=== PATIENT | male | born 1945 | race Caucasian/White ===

== ENCOUNTER 2019-12-31 09:34 | Outpatient (CLI) | payer OTHER, SELFPAY ==
--- NOTE | ~2019-12-31 | CT_ITS ---
EXAMINATION: CT facial bones w con EXAM DATE: 12/31/2019 11:26 INDICATION: Mass left anterior aspect of mandible. TECHNIQUE: Spiral CT of the facial bones was acquired in the axial plane following intravenous inject ion of 75 mL Omnipaque 350. Coronal reformatted images were also reviewed. The dose-length product (DLP) for this examination was 392.07 mGy-cm. The exposure was tailored according to patient size, a nd iterative reconstruction (ASIR) was used as additional dose reduction technique. There is no prio r study for comparison. FINDINGS: There is dense metallic artifact from dental hardware. There is poor indentation. There is a rim-enhancing fluid collection in the left ui ux web developer space, at the retromolar trigone measuring 2. 1 x 1.5 cm, mostly in the inferior aspect of the left temporalis muscle. This could be abscess or mal ignancy. No mandibular erosive change. There are small left submandibular, internal jugular chain lym ph nodes. Parotid and submandibular glands are unremarkable. IMPRESSION: Left ui ux web developer space fluid collection at the retromolar trigone. Could be abscess or nec rotic malignancy. Reviewed, dictated and finalized at location A. [employer] IMPRESSION: Left ui ux web developer space fluid collection at the retromolar trigone. C ould be abscess or necrotic malignancy.
[2019-12-31 11:08] LABS: Estimated Glomerular Filt Rate > 60
== END 2019-12-31 09:35 | disposition home or self-care (01) ==
LOC: ANHIMG 09:46
PROVIDERS: PCP Family Medicine
DX: K13.79 Other lesions of oral mucosa (principal)
CPT/HCPCS: 70487; Q9967

== ENCOUNTER → 2020-04-25 00:46 | Outpatient (CLI) | payer OTHER, SELFPAY ==
[2020-04-25 18:32] LABS: SARS-CoV-2 RNA PCR Negative
== END ==
PROVIDERS: PCP Family Medicine; Visit Provider Internal Medicine Gastroenterology
DX: Z01.812 Encounter for preprocedural laboratory examination (principal); Z20.822 Contact with and (suspected) exposure to COVID-19
CPT/HCPCS: C9803; U0003; U0005

== ENCOUNTER 2020-04-28 00:29 | Day surgery (SDC) | payer OTHER, SELFPAY ==
[2020-02-25 13:24] VITALS: BMI 31.8
[2020-04-13 09:49] VITALS: BMI 31.9
[2020-04-28 06:19] VITALS: BP 172/73; PULSE 74; RESP 20; TEMP 36.8; O2SAT 96
[2020-04-28] MEDS: LACTATED RINGERS 1,000 ML 150 ML IV CONT (06:33)
--- NOTE | 2020-04-28 06:56 | P.PNAN_ITS ---
Anes - Initial Pre Proc Eval Procedure: Operation Date: 04/28/20 07:30 Proposed Procedures p Screening Colonoscopy - Mando Mcintosh MD Date/Time: 04/28/20 06:56 Surgeon: Mando Mcintosh MD Pre Op Diagnosis: Neoplasm Screening Patient Data Age: 74 Gender: M Height: 5 ft 8 in Weight: 97.1 kg Last Vital Signs Temp 36.8 C 04/28/20 06:19 Pulse 74 04/28/20 06:19 Resp 20 04/28/20 06:19 BP 172/73 H 04/28/20 06:19 Pulse Ox 96 04/28/20 06:19 Allergies Allergy/AdvReac Type Severity Reaction Status Date / Time Shrimp Allergy Severe DIFFICULTY Uncoded 04/28/20 06:17 BREATHING Home Medications Medication Instructions Recorded Confirmed Type indomethacin 75 mg PO BID PRN 02/25/20 02/25/20 History vit C-E-zinc [id number] 1 cap PO BID 02/25/20 02/25/20 History [ICaps AREDS2] warfarin 4 mg PO DAILY 02/25/20 02/25/20 History lisinopril 10 mg tablet See Rx Instructions .ROUTE 02/28/20 04/13/20 Rx .COMPLEX #90 tablet Patient hx anesthesia problems: none Family hx anesthesia problems: none PMFSH Past Medical History Medical History Carpal tunnel syndrome on both sides Dyslipidemia Essential (primary) hypertension Factor V deficiency Family history of colon cancer in father History of prediabetes Idiopathic gout Portal vein thrombosis Prediabetes Umbilical hernia 07/01/2018 Unspecified osteoarthritis, unspecified site Surgical History Surgical History H/O right knee surgery age 32 History of carpal tunnel surgery right - 07/28/2015 & left 04/20/2010 History of cholecystectomy (~2012) History of hernia repair (~1965) Hx of appendectomy (~2011) [place] teeth extracted (~01/2020) Family History Family History Father Carcinoma of colon, Onset Age: 76 Other Cerebrovascular accident Diabetes mellitus Family history of hypercholesterolemia Family history of thyroid disease Hypertension Malignant neoplasm of prostate Social History Social History Smoking status: Never smoker Second hand tobacco smoke exposure: No Alcohol intake: current Drinks per week: 1 Substance use: never Substance use type: does not use Living arrangements: with family Spiritual care concerns: No Anes - Eval Final PreProcedure Day of Procedure 04/28/20 06:56 Patient weight: obese Heart: regular rate and rhythm Lungs: clear to auscultation Airway: Mallampati scale class 1 Neurological: alert and oriented Last oral intake: >/= 8 hours ASA classification: III Emergent: no Anesthetic plan: proceed Anesthesia type and monitoring: general GIVS and standard monitoring Informed Consent: The patient's anesthetic plan and its attendant risks and benefits were discussed with the patient/family/POA. Questions were solicited and answers provided to the satisfaction of the patient/family/POA.
--- NOTE | 2020-04-28 07:35 | PM.HPGS ---
History of Present Illness History of Present Illness Consent: Risks, benefits, and alternatives have been discussed and questions answered. Patient agrees to proceed with procedure. Chief complaint: Neoplasm Screening Narrative: Chon Packer is a 74 year old male with last colonoscopy 10 years ago, father had colon cancer Review of Systems Constitutional: Constitutional: Denies headache(s) and Denies weakness Eyes: Eyes: Denies blurry vision ENT: Reports Normal hearing present, Denies headache(s) and Denies neck pain Cardiovascular: Cardiovascular: Denies chest pain and Denies dyspnea Respiratory: Respiratory: Denies dyspnea Gastrointestinal: Gastrointestinal: Reports no additional gastrointestinal complaints Genitourinary: Genitourinary: Denies dysuria Musculoskeletal: Musculoskeletal: Denies neck pain Integumentary/Breasts: Skin/Breast: Denies dry skin Neurologic: Reports Normal hearing present, Denies headache(s) and Denies weakness Psychiatric: Psychiatric: Denies anxiety Endocrine: Endocrine: Denies change in body appearance Hematologic/Lymphatic: Hematologic/Lymphatic: Denies easy bleeding Allergic/Immunologic: Allergic/Immunologic: Denies urticaria PMFSH Past Medical History Medical History Carpal tunnel syndrome on both sides Dyslipidemia Essential (primary) hypertension Factor V deficiency Family history of colon cancer in father History of prediabetes Idiopathic gout Portal vein thrombosis Prediabetes Umbilical hernia 07/01/2018 Unspecified osteoarthritis, unspecified site Surgical History Surgical History H/O right knee surgery age 32 History of carpal tunnel surgery right - 07/28/2015 & left 04/20/2010 History of cholecystectomy (~2012) History of hernia repair (~1966) Hx of appendectomy (~2011) [place] teeth extracted (~01/2020) Family History Family History Father Carcinoma of colon, Onset Age: 76 Other Cerebrovascular accident Diabetes mellitus Family history of hypercholesterolemia Family history of thyroid disease Hypertension Malignant neoplasm of prostate Social History Social History Smoking status: Never smoker Second hand tobacco smoke exposure: No Alcohol intake: current Drinks per week: 1 Substance use: never Substance use type: does not use Living arrangements: with family Spiritual care concerns: No Meds Home Medications and Allergies Home Medications Medication Instructions Recorded Confirmed Type indomethacin 75 mg PO BID PRN 02/25/20 02/25/20 History vit C-E-zinc gm-kiep-cgf-zeax 1 cap PO BID 02/25/20 02/25/20 History [ICaps AREDS2] warfarin 4 mg PO DAILY 02/25/20 02/25/20 History lisinopril 10 mg tablet See Rx Instructions .ROUTE 02/28/20 04/13/20 Rx .COMPLEX #90 tablet Allergies Allergy/AdvReac Type Severity Reaction Status Date / Time Shrimp Allergy Severe DIFFICULTY Uncoded 04/28/20 06:17 BREATHING Vital Signs Vital Signs - 24 hr 04/28/20 06:19 Temperature 98.2 F Pulse Rate 74 Respiratory Rate 20 Blood Pressure 172/73 H Pulse Oximetry 96 Exam Const: General: comfortable and no acute distress HENMT: General nose exam: Normal nares present Eyes: General: appearance normal, both eyes and all related structures Neck: Neck: no JVD Resp: Auscultation: clear to auscultation bilaterally Cardio: Rate: regular rate Rhythm: regular rhythm GI: Inspection: non-distended GI Palp: Yes Soft to palpation Skin: General skin exam: normal color Neuro: General: gait normal Speech: normal speech Extrem: General: normal to inspection Psych: Mental Status: mental status grossly normal Assessment and Plan Assessment and plan (1) Family history
[2020-04-28 08:03] VITALS: BP 125/67; PULSE 64; RESP 18; O2SAT 98
[2020-04-28 08:13] VITALS: BP 108/77; PULSE 59; RESP 18; O2SAT 97
[2020-04-28 08:23] VITALS: BP 139/67; PULSE 53; RESP 18; O2SAT 98
== END 2020-04-28 08:34 | disposition home or self-care (01) ==
PROVIDERS: PCP Family Medicine; Visit Provider Internal Medicine Gastroenterology
PROC: 0DJD8ZZ Inspection of Lower Intestinal Tract, Via Natural or Artificial Opening Endoscopic (ICD-10-PCS; CPT 45378; principal; 2020-04-28 07:30)
DX: Z12.11 Encounter for screening for malignant neoplasm of colon (principal); D12.3 Benign neoplasm of transverse colon; K57.30 Diverticulosis of large intestine without perforation or abscess without bleeding; D68.51 Activated protein C resistance; I10 Essential (primary) hypertension; E78.5 Hyperlipidemia, unspecified; R73.03 Prediabetes; M19.90 Unspecified osteoarthritis, unspecified site; M10.00 Idiopathic gout, unspecified site; Z79.01 Long term (current) use of anticoagulants; E66.9 Obesity, unspecified; Z68.32 Body mass index [BMI] 32.0-32.9, adult; Z80.0 Family history of malignant neoplasm of digestive organs
CPT/HCPCS: 45385; 88305; J2704; J7120

== ENCOUNTER 2021-05-31 12:16 | Inpatient (IN) | payer MEDICARE, SELFPAY ==
[2021-05-31] VITALS (26 sets, daily range): BP systolic 120–186; BP diastolic 62–98; PULSE 58–89; RESP 14–24; TEMP 36.2–37.2; O2SAT 93–100; BMI 32.1
--- NOTE | ~2021-05-31 | US_ITS ---
EXAMINATION: US venous doppler [facility] DATE: 06/01/2021 12:40 INDICATION: Right lower limb deep venous thrombosis. Factor 5 derangement. Subtherapeutic INR. TECHNIQUE: Grayscale ultrasound images without and with compression and Doppler ultrasound images of the bilateral lower extremity veins were obtained. COMPARISON: None. FINDINGS: The visualized portions of right common femoral vein, profunda (deep) femoral vein, femoral vein, pop liteal vein, posterior tibial veins, peroneal veins, gastrocnemius vein and greater saphenous vein ou tflow are patent. The visualized portions of left common femoral vein, profunda femoral vein, femoral vein, popliteal v ein, posterior tibial veins, peroneal veins, gastrocnemius vein and greater saphenous vein outflow ar e patent. IMPRESSION: 1. No deep venous thrombosis in either lower limb. Reviewed, dictated and finalized at location A.
--- NOTE | ~2021-05-31 | XR_ITS ---
EXAMINATION: XR chest 2V EXAM DATE: 05/31/2021 12:40 INDICATION: Left sided chest pain . TECHNIQUE: Frontal and lateral projections of the chest obtained and reviewed. There is no prior yazan dy for comparison. FINDINGS: The lungs are clear. There are no pleural effusions. The cardiomediastinal silhouette is within normal limits. There is no pneumothorax suspected. The bones and soft tissues are unremarkab le. There are cholecystectomy clips. IMPRESSION: No acute cardiopulmonary findings. Reviewed, dictated and finalized at location A.
--- NOTE | ~2021-05-31 | CT_ITS ---
EXAMINATION: CTA chest PE protocol DATE: 05/31/2021 18:55 INDICATION: Chest pain and shortness of breath TECHNIQUE: Computed tomography angiography (CTA) of the chest was performed with 100 mL Omnipaque-350 intravenous contrast timed to evaluate the pulmonary arteries. Coronal maximum intensity projection 3D-reconstructions were created by the technologist. The dose-length product (DLP) was 598.98 mGy-cm. Automated exposure control and iterative reconstruction technique were employed. COMPARISON: None. FINDINGS: The pulmonary arteries are well-opacified. There are central emboli in the main pulmonary a rteries which extend into all lobes of the lungs. There is straightening of the interventricular sept um of the heart. There are patchy opacities in the left upper and lower lobes. There is no pleural ef fusion or pneumothorax. No pathologically enlarged thoracic lymph nodes are identified. The heart siz e is normal. There is moderate thoracic spondylosis. IMPRESSION: 1. Bilateral central pulmonary emboli extending into all lobes of the lungs with suggestion of right heart strain. These findings were discussed with the patient's nurse in the IMU at 1928 hours on 05/31. 2. Patchy opacities of the left lung which could reflect pneumonia, atelectasis, or possibly pulmonar y infarct. Reviewed, dictated and finalized at location F. IMPRESSION: 1. Bilateral central pulmonary emboli extending into all lobes of the lungs wit h suggestion of right heart strain. These findings were discussed with the joann ent's nurse in the IMU at 1928 hours on 05/31/2021. 2. Patchy opacities of the left lung which could reflect pneumonia, atelectasis , or possibly pulmonary infarct.
--- NOTE | 2021-05-31 12:17 | ECG_ITS ---
Measurements Intervals Casa Rate: 78 P: 55 KS: 212 QRS: -66 QRSD: 106 T: 51 QT: 366 QTc: 419 Interpretive Statements SINUS RHYTHM WITH FIRST DEGREE AV BLOCK PATTERN CONSISTENT WITH PULMONARY DISEASE LEFT ANTERIOR FASCICULAR BLOCK [QRS AXIS <= -45, QR IN I, RS IN II] ABNORMAL ECG NO PREVIOUS ECG AVAILABLE FOR COMPARISON Electronically Signed On 05-31-2021 17:05:07 CDT by Maicol Fields M.D.
[2021-05-31 12:31] LABS: Basophils Percent Auto 0.4 % (0.2-1.2); Eosinophils Absolute Auto 0.5 K/mm3 (0-0.3); Hematocrit 45.6 % (42.0-52.0); Hemoglobin 14.9 g/dL (14.0-18.0); Immature Granulocyte Absolute 0.04 K/mm3 (0.00-0.031); Immature Granulocyte Percent A 0.5 % (0-0.5); Lymphocytes Absolute Auto 2.26 K/mm3 (0.9-3.2); Lymphocytes Percent Auto 29.1 % (18.3-44.2); Mean Corpuscular HGB Conc 32.7 g/dl (32-36); Mean Corpuscular Volume 91.9 fl (80-100); Mean Platelet Volume 9.4 fl (7.4-10.4); Monocytes Percent Auto 12.5 % (2.6-8.5); Neutrophils Percent Auto 51.5 % (45.5-73.1); Platelet Count Result 155 k/mm3 (150-375); Red Blood Count 4.96 M/mm3 (4.6-6.20); Red Cell Distribution Width 13.2 % (11.5-14.5); White Blood Count 7.8 K/mm3 (4.5-10.0)
[2021-05-31 12:40] LABS: INR 1.2; Prothrombin Time 15.1 Seconds (11.1-14.7)
[2021-05-31 12:41] LABS: Partial Thromboplastin Time 29.2 SECONDS (22.3-36.8)
[2021-05-31 12:42] LABS: Alanine Aminotransferase 17 U/L (4-50); Albumin Level 4.3 g/dL (3.5-5.1); Alkaline Phosphatase 95 U/L (38-126); Anion Gap 7 mmol/L (8-16); Aspartate Amino Transferase 30 U/L (17-59); Bilirubin,Total 0.5 mg/dL (0.2-1.3); Blood Urea Nitrogen 20 mg/dL (9-20); Calcium 8.8 mg/dL (8.4-10.2); Carbon Dioxide 28 mmol/L (22-30); Chloride 106 mmol/L (98-107); Estimated Glomerular Filt Rate > 60; Glucose 111 mg/dL (65-110); Lipase 85 U/L (23-300); Potassium 4.5 mmol/L (3.4-5.0); Sodium 141 mmol/L (137-145)
[2021-05-31 12:53] LABS: Troponin I 0.012 ng/mL (0.000-0.034)
--- NOTE | 2021-05-31 14:14 | ED.CHESTPAIN ---
HPI - Chest Pain General Chief Complaint: Chest Pain Stated Complaint: chest pain Time Seen by Provider: 05/31/21 13:50 Source: patient Mode of arrival: ambulatory Limitations: no limitations History of Present Illness HPI narrative: Patient is 75 years old white male presents with left chest pain for the last 2 months. On exertion. Associated with intermittent shortness of breath, diaphoresis. Gets better at rest. History of factor V deficiency, portal thrombosis, and hypertension. Patient started on Coumadin 8 years ago for portal thrombosis, patient quit taking Coumadin on his own August 2020, restarted on it again by his family physician 1 week ago. Patient was seen by his family physician 1 week ago we will schedule him for cardiac stress test June 2021. Patient woke up this morning after light activity started having left chest pain as usual which lasted longer than usual. He denies any fever, chills, nausea, vomiting, back pain, headache. Related Data Allergies Allergy/AdvReac Type Severity Reaction Status Date / Time Shrimp Allergy Severe DIFFICULTY Uncoded 05/31/21 13:14 BREATHING Review of Systems Review of Systems: CONSTITUTIONAL: Denies fever, chills, or sweats. EYES: Denies visual changes, redness, or discharge. ENT: Denies rhinorrhea, congestion, sore throat, or otalgia. CARDIOVASCULAR: Denies chest pain, palpitations, or edema. RESPIRATORY: Denies cough or dyspnea. GASTROINTESTINAL: Denies abdominal pain, nausea, vomiting, or diarrhea. GENITOURINARY: Denies dysuria or hematuria. SKIN: Denies rash or itching. MUSCULOSKELETAL: Denies back pain, joint pain, or myalgia. NEUROLOGIC: Denies headache, numbness, or weakness. PSYCHIATRIC: Denies anxiety or depression. [facility] Past Medical History Medical History Carpal tunnel syndrome on both sides Dyslipidemia Essential (primary) hypertension Factor V deficiency Family history of colon cancer in father History of prediabetes Idiopathic gout Portal vein thrombosis Prediabetes Umbilical hernia 07/01/2018 Unspecified osteoarthritis, unspecified site Surgical History Surgical History H/O right knee surgery age 32 History of carpal tunnel surgery right - 07/28/2015 & left 04/20/2010 History of cholecystectomy (~2012) History of hernia repair (~1965) Hx of appendectomy (~2011) [place] teeth extracted (~01/2020) Family History Family History Father Carcinoma of colon, Onset Age: 76 Other Cerebrovascular accident Diabetes mellitus Family history of hypercholesterolemia Family history of thyroid disease Hypertension Malignant neoplasm of prostate Social History Social History Second hand tobacco smoke exposure: No Alcohol intake: current Drinks per week: 1 Substance use: never Substance use type: does not use Spiritual care concerns: No Exam Narrative: General appearance: Well-developed, well-nourished Skin: Normal color Head: Normocephalic, nontraumatic Eyes: Clear conjunctiva ENT: Oropharynx normal, ears normal, nose normal Neck: Supple, nontender Chest and respiratory: Airway patent, no respiratory distress, no accessory muscle use Heart: Regular rate/rhythm Abdomen: Soft, nontender, no organomegaly, quiet bowel sounds Vascular: Normal peripheral pulses, normal capillary refill. Musculoskeletal: Normal range of motion, nontender back Neurologic: Alert and oriented ?3, PIECE DYER is normal as tested, no gross motor deficit Course Course Emergency
--- NOTE | 2021-05-31 14:50 | PM.IMHP ---
H&P: HPI History of Present Illness Date/Time: 05/31/21 14:50 Chief Complaint: Chest pain. Narrative: This is a pleasant 75-year-old male with hypertension, dyslipidemia, prediabetes, factor 5 deficiency, gout, and osteoarthritis who presented to the emergency department from home for evaluation of chest pain. Over the last couple of months he has noticed intermittent left anterior chest and shoulder pain associated with shortness of breath and occasional sweats and lightheadedness. The symptoms tend to occur with activities such as taking out the trash can or playing with his grandchildren. It is occasionally worse upon deep inspiration but not each time. His symptoms improve with rest. His symptoms have occurred more frequently over the past 1 week and this morning they lasted much longer than usual and thus he came in for evaluation. Vital signs were stable on arrival to the emergency department. Labs are relatively unremarkable with 2 negative troponins thus far. His EKG did not demonstrate any acute ST segment changes or signs concerning for ischemia. Due to his risk factors, I was asked to admit the patient for further cardiac evaluation. At the time my evaluation he is resting comfortably however did have an episode of poking pain in the left anterior chest with deep inspiration upon auscultation. With further questioning he mentions that he stopped taking his warfarin last summer shortly after his but after meeting with his primary care provider earlier this week, he has started back on that medication within the past day or 2. He has no known history of coronary artery disease and has no history of pulmonary embolism to his knowledge however he does have history of DVT and portal venous thrombosis. Review of Systems Review of Systems: 12 systems were reviewed. He had upper respiratory infection in March but has been doing well since that time. He is recently lost a couple of pounds as he has been starting to ride a bicycle. No orthopnea, PND, or lower extremity edema. He denies calf pain. No palpitations or sensation of racing heart. He denies syncope and near syncope. No nausea, vomiting, or diarrhea. Except as documented, all other systems were reviewed and are negative [facility] Past Medical History Medical History (Updated 05/31/21 @ 14:55 by Rosie Vogel PA-C) Dyslipidemia Essential (primary) hypertension Factor V deficiency Idiopathic gout Kidney stones Macular degeneration Portal vein thrombosis Prediabetes Hemoglobin A1c was 5.8% in May 2021. Right leg DVT Unspecified osteoarthritis, unspecified site Surgical History Surgical History (Updated 05/31/21 @ 14:54 by Rosie Vogel PA-C) History of appendectomy (2008) History of arthroscopy of both knees History of bilateral carpal tunnel release History of cholecystectomy (2008) History of colonoscopy with polypectomy (04/2020) Transverse colon polyp-tubular adenoma History of right inguinal hernia repair (1965) [place] teeth extracted (01/2020) Family History Family History (Updated 05/31/21 @ 16:58 by Lena Caicedo RN) Father Carcinoma of colon, Onset Age: 76 Family history of hypercholesterolemia Heart attack Mother Cerebrovascular accident Family history of hypercholesterolemia Family history of thyroid disease Sibling Malignant neoplasm of prostate Social History Social History (Updated 05/31/21 @ 16:58 by Rosie Vogel PA-C) Social History: Surrogate decision maker: Elayne Vogt, daughter. Code status: Full code. Second hand tobacco smoke exposure: No Alcohol intake: current Drinks per week: 1 Substance use: never Substance use type: does not use Additional living arrangements comments: as of August 2020. Daughter, son-in-law, grandchildren are now living with him. Additional occupation/education comments: Retired from working for the [employer] Spiritual care concerns: No Meds
[2021-05-31] MEDS: METOPROLOL TARTRATE 25 MG TABLET PO (16:08)
[2021-05-31] MEDS: NITROGLYCERIN OINTMENT 1 INCH DOSE TRANSDERM (16:08)
--- NOTE | 2021-05-31 16:24 | PM.CNCAR ---
Assessment and Plan Additional Plan This is a 75-year-old man who is presenting with about 2 months of increasing exertional shortness of breath recently a combination by some left shoulder discomfort as well. It is also interesting that some of his shoulder pain can be caused by deep inspiration. He has no previous cardiac history. He does have a history of a documented hypercoagulable disorder and has been off his warfarin for some time. Recently restarted by the PCP when he was presenting with the symptoms but he is not yet he has been therapeutic. My principal concern at this time would be that this gentleman may have a pulmonary embolism. I have discussed this with the hospitalist who will be arranging for CT of his chest. I am going to ask for an echocardiogram for these reasons as well. I will await these results before I determine if any other cardiac workup is necessary otherwise. Chon Benson MD [facility] History of Present Illness History of Present Illness Consult date/time: 05/31/21 16:24 Consult reason: chest pain and shortness of breath Reason For Visit: Unstable Angina Narrative: This is a 75-year-old man I am seeing in the emergency room at the request of the ED staff/hospitalist because of exertional dyspnea and some left shoulder pain that had been going on now for about 2 months. The patient states that he has noticed for something like 2 months with normal daily activities such as housework and carrying out the garbage cans and things like this he will notice the sense of dyspnea/air hunger when usually that is not the case. He thinks it has been slowly getting a little bit worsened recently within the last week or so it is also associated with the sense of some pain in the left upper chest or left shoulder region. He also states that pain tends to get worse if he takes a deep inspiration. Patient states that he has not had any cardiac problems in the past that he is aware of. He does carry the diagnosis of hypertension and factor 5 deficiency. He states the factor 5 deficiency diagnosis was made a number of years ago when he presented with a portal vein thrombosis was hospitalized for something like 3 or 4 weeks at [place] and was recommended to take lifelong warfarin treatment. He states that his she sadly of a malignancy this past year and he decided that he was going to take his medication any longer he had not been taking his warfarin for quite some time. Apparently saw his PCP about the symptoms of dyspnea just a few days ago and was convinced to go back on warfarin. He has been taking his medication for mg daily but his INR is of course still subtherapeutic at 1.2. Patient's electrocardiogram shows sinus mechanism with left anterior superior hemiblock. He otherwise appears to be resting comfortably in the emergency room. Review of Systems Constitutional: Constitutional: Reports no additional constitutional complaints Eyes: Eyes: Reports no additional eye complaints ENT: Reports system reviewed and no additional complaints, except as documented Cardiovascular: Cardiovascular: Reports as per HPI Respiratory: Respiratory: Reports as per HPI Gastrointestinal: Gastrointestinal: Reports no additional gastrointestinal complaints Musculoskeletal: Musculoskeletal: Reports no additional musculoskeletal complaints Integumentary/Breasts: Skin/Breast: Reports system reviewed and no additional complaints, except as docu Neurologic: Reports system reviewed and no additional complaints, except as documented Endocrine: Endocrine: Reports no additional endocrine complaints Hematologic/Lymphatic: Hematologic/Lymphatic: Reports no additional hematologic/lymphatic complaints Allergic/Immunologic: Allergic/Immunologic: Reports no additional allergic/immunologic complaints [facility] Past Medical History Medical History (Updated 05/31/21 @ 14:55 by Rosie Vogel PA-C) Dyslipidemia Essential (primary)
[2021-05-31 16:37] LABS: Troponin I < 0.012 ng/mL (0.000-0.034)
[2021-05-31 16:40] LABS: SARS-CoV-2 RNA PCR Negative
--- NOTE | 2021-05-31 16:51 | PC.NURSE ---
Report received from ZEV Givens with the ED department at 1522. All questions answered and plan of care reviewed. Patient to go to IMU room 206-1.
--- NOTE | 2021-05-31 16:52 | ADMGEN ---
This patient, Chon Packer, was admitted to IMU Room 206-01. Patient/family oriented to hospital policies and general routines including ID bracelet, bed and alarms, visiting hours, pain management, procedures, bathroom and other care routines, personal items, smoking policy, room service/diet, and visiting hours. Information on how to activate the Rapid Response Team has been discussed. Patient/Family are encouraged to report perceived risks to care and to ask questions if they do not understand what they are told or what they should do.
--- NOTE | 2021-05-31 16:53 | ADMGEN ---
This patient, Chon Packer, was admitted to IMU Room 206-01 AT 1653. Patient/family oriented to hospital policies and general routines including ID bracelet, bed and alarms, visiting hours, pain management, procedures, bathroom and other care routines, personal items, smoking policy, room service/diet, and visiting hours. Information on how to activate the Rapid Response Team has been discussed. Patient/Family are encouraged to report perceived risks to care and to ask questions if they do not understand what they are told or what they should do.
[2021-05-31 18:54] LABS: Troponin I < 0.012 ng/mL (0.000-0.034)
[2021-05-31] MEDS: HEPARIN SODIUM 5,000 UNITS/ML VIAL 6500 UNITS IV PUSH (21:30)
[2021-05-31 21:40] LABS: Basophils Percent Auto 0.3 % (0.2-1.2); Eosinophils Absolute Auto 0.4 K/mm3 (0-0.3); Eosinophils Percent Auto 6.6 % (0-4.4); Hematocrit 41.6 % (42.0-52.0); Hemoglobin 13.5 g/dL (14.0-18.0); Immature Granulocyte Absolute 0.01 K/mm3 (0.00-0.031); Immature Granulocyte Percent A 0.2 % (0-0.5); Lymphocytes Absolute Auto 1.79 K/mm3 (0.9-3.2); Lymphocytes Percent Auto 28.8 % (18.3-44.2); Mean Corpuscular HGB Conc 32.5 g/dl (32-36); Mean Corpuscular Hemoglobin 29.7 pg (26-34); Mean Corpuscular Volume 91.4 fl (80-100); Mean Platelet Volume 9.6 fl (7.4-10.4); Monocytes Absolute Auto 0.8 K/mm3 (0.1-0.6); Monocytes Percent Auto 12.4 % (2.6-8.5); Neutrophils Absolute Auto 3.2 K/mm3 (1.3-6.7); Neutrophils Percent Auto 51.7 % (45.5-73.1); Platelet Count Result 147 k/mm3 (150-375); Red Blood Count 4.55 M/mm3 (4.6-6.20); Red Cell Distribution Width 13.1 % (11.5-14.5); White Blood Count 6.2 K/mm3 (4.5-10.0)
[2021-05-31] MEDS: HEPARIN SOD/D5W 100 UNITS/ML 25,000 UNITS/250 ML BAG 14 UNITS IV CONT (21:41)
[2021-05-31 21:52] LABS: INR 1.4; Prothrombin Time 16.6 Seconds (11.1-14.7)
[2021-05-31 21:53] LABS: Partial Thromboplastin Time 33.9 SECONDS (22.3-36.8)
[2021-06-01] VITALS (14 sets, daily range): BP systolic 122–161; BP diastolic 53–71; PULSE 53–74; RESP 16; TEMP 36.3–36.9; O2SAT 93–100
--- NOTE | 2021-06-01 | ECHO_ITS ---
Patient Info Name: Chon Packer Age: 75 years : 1945 Gender: Male Ht: 68 in Wt: 209 lbs BSA: 2.16 m2 HR: 57 bpm BP: 122 / 60 mmHg Heart Rhythm: Sinus Rhythm Technical Quality: Fair Exam Date: 06/01/2021 8:11 AM Exam Location: [facility] Patient Status: Inpatient Admit Date: 05/31/2021 Staff Ordering Physician: Chon Benson MD Pack Press Operator: Maggie Felix RDCS Attending Provider: Miladis Xiong M.A., MD Referring Physician: Marcelino SON; Exam Type: CA echo doppler color flow Study Info Complete two-dimensional, color flow and Doppler transthoracic echocardiogram is performed. Summary 1. Complete two-dimensional, color flow and Doppler transthoracic echocardiogram is performed. 2. There is mild concentric increased left ventricular wall thickness. 3. Left ventricular systolic function is normal, estimated at 55-60%. 4. The left ventricular diastolic function is grade I diastolic dysfunction. 5. Right ventricular chamber dimension is normal. 6. Despite pulmonary embolism no evidence of right ventricular strain/dysfunction. Left Ventricle Left ventricular chamber dimension is normal. Left ventricular systolic function is normal, estimated at 55-60%. There is mild concentric increased left ventricular wall thickness. The left ventricular diastolic function is grade I diastolic dysfunction. Right Ventricle Right ventricular chamber dimension is normal. Left Atria Left atrial chamber dimension is mildly enlarged. Right Atria Right atrial chamber dimension is normal. Aortic Valve The aortic valve is normal. Pulmonic Valve The pulmonic valve is not well visualized. There is trace pulmonic regurgitation. Mitral Valve The mitral valve has normal leaflets. Tricuspid Valve The tricuspid valve leaflets are normal. There is no tricuspid valve regurgitation. Pericardium/Pleural The pericardium appears normal. Left Ventricular Outflow Tract Name Value Normal LVOT 2D LVOT Diameter 2.0 cm LVOT Doppler LVOT Peak Gradient 5 mmHg LVOT Mean Gradient 2 mmHg LVOT VTI 22 cm LVOT VTI/AV VTI Ratio 0.6 LVOT Stroke Volume 73 ml LVOT CO 3.9 l/min LVOT CI 1.8 l/min/m2 Pulmonic Valve Name Value Normal RVOT Doppler RVOT Peak Gradient 1 mmHg PV Doppler PV Peak Gradient 3 mmHg Mitral Valve Name Value Normal
[2021-06-01 05:55] LABS: Basophils Percent Auto 0.5 % (0.2-1.2); Eosinophils Absolute Auto 0.5 K/mm3 (0-0.3); Eosinophils Percent Auto 7.8 % (0-4.4); Hematocrit 40.4 % (42.0-52.0); Hemoglobin 13.5 g/dL (14.0-18.0); Immature Granulocyte Absolute 0.02 K/mm3 (0.00-0.031); Immature Granulocyte Percent A 0.3 % (0-0.5); Lymphocytes Absolute Auto 2.24 K/mm3 (0.9-3.2); Lymphocytes Percent Auto 34.9 % (18.3-44.2); Mean Corpuscular HGB Conc 33.4 g/dl (32-36); Mean Corpuscular Volume 89.8 fl (80-100); Mean Platelet Volume 9.8 fl (7.4-10.4); Monocytes Absolute Auto 0.7 K/mm3 (0.1-0.6); Monocytes Percent Auto 10.5 % (2.6-8.5); Platelet Count Result 153 k/mm3 (150-375); Red Cell Distribution Width 12.9 % (11.5-14.5); White Blood Count 6.4 K/mm3 (4.5-10.0)
--- NOTE | 2021-06-01 06:00 | ECG_ITS ---
Measurements Intervals [place] Rate: 54 P: 47 MS: 215 QRS: -68 QRSD: 122 T: -12 QT: 437 QTc: 417 Interpretive Statements SINUS BRADYCARDIA WITH FIRST DEGREE AV BLOCK LEFT ANTERIOR FASCICULAR BLOCK [QRS AXIS <= -45, QR IN I, RS IN II] NONSPECIFIC T-WAVE ABNORMALITY COMPARED TO ECG 05/31/2021 12:21:47 HEART RATE IS REDUCED, NO OTHER CHANGE Electronically Signed On 06-01-2021 15:28:49 CDT by Chon Benson M.D.
[2021-06-01 06:02] LABS: INR 1.5; Prothrombin Time 17.2 Seconds (11.1-14.7)
[2021-06-01 06:10] LABS: Anion Gap 6 mmol/L (8-16); Blood Urea Nitrogen 17 mg/dL (9-20); Carbon Dioxide 25 mmol/L (22-30); Chloride 106 mmol/L (98-107); Estimated CRCL calculation 65 ml/min; Estimated Glomerular Filt Rate > 60; Glucose 92 mg/dL (65-110); Magnesium 2.1 mg/dL (1.6-2.3); Potassium 4.1 mmol/L (3.4-5.0); Sodium 137 mmol/L (137-145)
--- NOTE | 2021-06-01 06:45 | PC.NURSE ---
Called lab to inquire about results for ordered PTT. Lab stated that results were completed after inquiring 3 times. Explained to lab personel that there were no results in the computer for the above named pt.for ptt. Lab then stated that that a PTT was not ordered. Explained to lab that a PTT was ordered to be drawn @ 5am. Lab reordered @ 0640. Will adjust heparin per protocol when results are completed.
[2021-06-01] MEDS: lisinopriL 10 MG TABLET PO (09:04)
[2021-06-01] MEDS: OPTI-GEN TAB 1 TABLET PO (09:04)
--- NOTE | 2021-06-01 09:45 | PM.PNCARD ---
Progress Note: A&P Additional Plan 75-year-old man with hypercoagulable state presenting with bilateral pulmonary emboli after being off of anticoagulation for a number of months. Systemic anticoagulation with heparin has been started. I would recommend transitioning him in 2-3 days to PE dosing of either apixaban or Xarelto. There is no additional cardiac problem or concerned and for that reason I will sign off of his inpatient follow-up at this time. He should follow-up with his PCP and maintain systemic anticoagulation ideally with either apixaban or Xarelto indefinitely. He is hemodynamically stable and breathing room air therefore he does not require transfer to a tertiary care facility for pulmonary artery thrombectomy Chon Benson MD [facility] Subjective Date/time seen: Date of service: 06/01/21 09:45 Interval history: Follow-up visit in this 75-year-old man with: 2 month history of progressive exertional shortness of breath with about 1-2 weeks of left shoulder pain as well. Patient has hypercoagulable state and was off of his anticoagulation treatment. Unfortunately his examination has demonstrated extensive bilateral pulmonary emboli as I suspected clinically. This was discussed in detail with the patient he was appropriately placed on IV heparin yesterday. I would recommend continuing IV heparin for at least 2-3 days and starting oral anticoagulation with a DOAC preferably either apixaban or Xarelto at PE dosage. This was discussed in detail with the patient and he understands Exam Const: General: comfortable and no acute distress Other: Pleasant gentleman supine in bed watching television with IV heparin running no distress at all, breathing room air HENMT: Mouth: Yes moist mucous membranes Eyes: Sclera: sclerae normal Neck: Neck: supple and no JVD Resp: Effort & Inspection: normal respiratory effort Auscultation: clear to auscultation bilaterally Cardio: Rate: regular rate Rhythm: regular rhythm GI: GI Palp: Yes Soft to palpation Auscultation: normal bowel sounds Skin: General skin exam: normal color Neuro: Cognition (Neuro): normal cognition Extrem: General: normal to inspection Objective Data Vital Signs Vital Signs: Vital Signs - 24 hr 05/31/21 12:49 05/31/21 13:25 05/31/21 13:30 Temperature 37.2 C Pulse Rate 82 68 68 Respiratory Rate 18 15 20 Blood Pressure 168/72 H Pulse Oximetry 96 97 97 05/31/21 13:31 05/31/21 13:45 05/31/21 13:46 Temperature Pulse Rate 66 72 74 Respiratory Rate 20 23 H 24 H Blood Pressure 157/74 H 149/84 H Pulse Oximetry 95 98 96 05/31/21 14:00 05/31/21 14:01 05/31/21 14:02 Temperature Pulse Rate 63 58 L 66 Respiratory Rate 23 H 21 H 19 Blood Pressure 135/71 Pulse Oximetry 95 94 95 05/31/21 14:17 05/31/21 14:30 05/31/21 14:31 Temperature Pulse Rate 68 79 83 Respiratory Rate 21 H 15 15 Blood Pressure 186/98 H Pulse Oximetry 97 97 05/31/21 14:32 05/31/21 14:47 05/31/21 15:00 Temperature Pulse Rate 66 66 69 Respiratory Rate 21 H 21 H 20 Blood Pressure 159/89 H Pulse Oximetry 98 99 05/31/21 15:33 05/31/21 16:08 05/31/21 16:11 Temperature Pulse Rate 67 89 86 Respiratory Rate 15 22 H Blood Pressure Pulse Oximetry 97 99 05/31/21 16:15 05/31/21 16:16 05/31/21 16:55 Temperature 37.2 C Pulse Rate 76 77 78 Respiratory Rate 18 16 14 Blood Pressure 163/85 H 169/77 H Pulse Oximetry 99 98 99 05/31/21 18:00 05/31/21 19:50 05/31/21 20:00 Temperature 36.3 C L Pulse Rate 63 59 L 76 Respiratory Rate 14 Blood Pressure 134/68 Pulse Oximetry 93 05/31/21 22:00 05/31/21 23:41 06/01/21 00:00 Temperature 36.2 C L Pulse Rate 66 67 74 Respiratory Rate 16 Blood Pressure 120/62 Pulse Oximetry 100 06/01/21 02:00 06/01/21 04:00 06/01/21 06:00 Temperature 36.4 C L Pulse Rate 62 57 L 53 L Respiratory Rate 16 Blood Pressure 122/60 Pulse Oximetry 100 06/01/21
--- NOTE | 2021-06-01 11:36 | PM.IMPN ---
Progress Note: A&P Assessment and Plan (1) Pulmonary embolism: Code(s): I26.99 - Other pulmonary embolism without acute cor pulmonale Status: Acute Assessment and Plan: CTA of the chest shows bilateral central pulmonary emboli extending into all lobes of the lung with suggestion of right heart strain. He also has a patchy airspace opacity in the left lung which could represent pulmonary infarct. Lower extremity venous Dopplers have been ordered. Echocardiogram has been ordered. Patient currently on heparin drip and is therapeutic. Coumadin was resumed but Cardiology feels DOAC is more appropriate. Will check with care coordination about affordability of Eliquis. Plan for heparin drip for 2-3 more days with transition to Eliquis hopefully. Stop Warfarin. Plan discharge on Friday if he remains stable. (2) Chest pain: Qualifiers: Chest pain type: unspecified Qualified Code(s): R07.9 - Chest pain, unspecified Code(s): R07.9 - Chest pain, unspecified Status: Acute Assessment and Plan: Patient presents with complaints of pleuritic chest pain. Patient has factor 5 Leiden deficiency and has been off anticoagulation for year. There was concern for VTE. CTA confirms pulmonary embolism. PE is etiology of his chest pain. (3) Essential (primary) hypertension: Code(s): I10 - Essential (primary) hypertension Status: Acute Assessment and Plan: Patient's blood pressure was reviewed on 06/01. Blood pressure better controlled. 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 Compliance with anticoagulation is a must and this was encouraged. He voices understanding. (5) Prediabetes: Code(s): R73.03 - Prediabetes Status: Acute Assessment and Plan: A1c 5.8. Glucose remains well controlled. Continue to follow periodically. Subjective Date/time seen: 06/01/21 11:36 Interval history: 75yo male with hx of Factor V leiden defic, DM and HTN here for CP and found to have PE. Still with left sided pleuritic chest pain but better. No SOB. No cough. No pedal edema. He has been off anticoagulation since August of last year. This is around the time his . Exam Narrative: AF 98.4 129/53 54 16 93% ra Gen - NARD Chest - CTA bilaterally, nml RR CV - RRR S1/S2; Tele showing no significant dysrhythmias Abd - Soft, NT/ND, Positive BS Ext - No pedal edema Psych - Nml mood and affect Skin - Warm and dry Objective Data Vital Signs Vital Signs: Vital Signs - 24 hr 05/31/21 12:49 05/31/21 13:25 05/31/21 13:30 Temperature 99 F Pulse Rate 82 68 68 Respiratory Rate 18 15 20 Blood Pressure 168/72 H Pulse Oximetry 96 97 97 05/31/21 13:31 05/31/21 13:45 05/31/21 13:46 Temperature Pulse Rate 66 72 74 Respiratory Rate 20 23 H 24 H Blood Pressure 157/74 H 149/84 H Pulse Oximetry 95 98 96 05/31/21 14:00 05/31/21 14:01 05/31/21 14:02 Temperature Pulse Rate 63 58 L 66 Respiratory Rate 23 H 21 H 19 Blood Pressure 135/71 Pulse Oximetry 95 94 95 05/31/21 14:17 05/31/21 14:30 05/31/21 14:31 Temperature Pulse Rate 68 79 83 Respiratory Rate 21 H 15 15 Blood Pressure 186/98 H Pulse Oximetry 97 97 05/31/21 14:32 05/31/21 14:47 05/31/21 15:00 Temperature Pulse Rate 66 66 69 Respiratory Rate 21 H 21 H 20 Blood Pressure 159/89 H Pulse Oximetry 98 99 05/31/21 15:33 05/31/21 16:08 05/31/21 16:11 Temperature Pulse Rate 67 89 86 Respiratory Rate 15 22 H Blood Pressure Pulse Oximetry 97 99 05/31/21 16:15 05/31/21 16:16 05/31/21 16:55 Temperature 98.9 F Pulse Rate 76 77 78 Respiratory Rate 18 16 14 Blood Pressure 163/85 H
[2021-06-01 14:19] LABS: Partial Thromboplastin Time 82.2 SECONDS (22.3-36.8)
[2021-06-01] MEDS: HEPARIN SOD/D5W 100 UNITS/ML 25,000 UNITS/250 ML BAG 12 UNITS IV CONT (15:40)
[2021-06-01 19:54] LABS: Partial Thromboplastin Time 75.5 SECONDS (22.3-36.8)
--- NOTE | 2021-06-01 20:49 | PC.NURSE ---
When making rounds at 2024, Heparin drip was found to be running at 960 units/hr. I was told in report that the drip was running at 1200 units/hr, and that is what has been documented in the MAR. Ptt drawn at 1934 is 75.5 which is therapeutic per our protocol for PE. I spoke with pharmacy, and they recommended going to 1000units/hr and check a PTT in 6 hours. Rosie GRIAMLDO and Dewayne Shi RN (ICU life consultant) notified of findings. Pump adjusted to 10cc, or 1000 units/hr at 2034.
[2021-06-02] VITALS (10 sets, daily range): BP systolic 128–165; BP diastolic 53–76; PULSE 49–66; RESP 16–20; TEMP 36.2–36.8; O2SAT 93–96
[2021-06-02 02:23] LABS: Hematocrit 39.5 % (42.0-52.0); Hemoglobin 13.4 g/dL (14.0-18.0); Mean Corpuscular HGB Conc 33.9 g/dl (32-36); Mean Corpuscular Hemoglobin 30.1 pg (26-34); Mean Corpuscular Volume 88.8 fl (80-100); Mean Platelet Volume 9.3 fl (7.4-10.4); Platelet Count Result 146 k/mm3 (150-375); Red Blood Count 4.45 M/mm3 (4.6-6.20); Red Cell Distribution Width 12.9 % (11.5-14.5); White Blood Count 6.3 K/mm3 (4.5-10.0)
[2021-06-02 02:37] LABS: Anion Gap 5 mmol/L (8-16); Blood Urea Nitrogen 18 mg/dL (9-20); Calcium 8.1 mg/dL (8.4-10.2); Carbon Dioxide 28 mmol/L (22-30); Chloride 104 mmol/L (98-107); Estimated CRCL calculation 72 ml/min; Estimated Glomerular Filt Rate > 60; Glucose 95 mg/dL (65-110); Potassium 4.1 mmol/L (3.4-5.0); Sodium 137 mmol/L (137-145)
[2021-06-02 02:46] LABS: Partial Thromboplastin Time 60.4 SECONDS (22.3-36.8)
[2021-06-02] MEDS: HEPARIN SODIUM 5,000 UNITS/ML VIAL 3000 UNITS IV PUSH (03:01)
[2021-06-02] MEDS: lisinopriL 10 MG TABLET PO (08:25)
[2021-06-02] MEDS: OPTI-GEN TAB 1 TABLET PO (08:25)
[2021-06-02 09:54] LABS: Partial Thromboplastin Time 106.3 SECONDS (22.3-36.8)
--- NOTE | 2021-06-02 12:23 | PM.IMPN ---
Progress Note: A&P Assessment and Plan (1) Pulmonary embolism: Code(s): I26.99 - Other pulmonary embolism without acute cor pulmonale Status: Acute Assessment and Plan: CTA of the chest shows bilateral central pulmonary emboli extending into all lobes of the lung with suggestion of right heart strain. He also has a patchy airspace opacity in the left lung which could represent pulmonary infarct. Lower extremity venous Dopplers is negative. Echocardiogram showed Left ventricular systolic function is normal, estimated at 55-60%. There is mild concentric increased left ventricular wall thickness. The left ventricular diastolic function is grade I diastolic dysfunction Pt was on iv heparin transitioned to oral eliquis stable for DC savana (2) Chest pain: Qualifiers: Chest pain type: unspecified Qualified Code(s): R07.9 - Chest pain, unspecified Code(s): R07.9 - Chest pain, unspecified Status: Resolved Assessment and Plan: Pain is resolved. CTA confirms pulmonary embolism. (3) Essential (primary) hypertension: Code(s): I10 - Essential (primary) hypertension Status: Acute Assessment and Plan: Bp is 137/67. 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 Pt was on warfarin the in past and ASA prefers newer DOACS. (5) Prediabetes: Code(s): R73.03 - Prediabetes Status: Acute Assessment and Plan: A1c 5.8. Subjective Date/time seen: 06/02/21 12:23 Interval history: 75yo male with hx of Factor V leiden defic, DM and HTN here for CP and found to have PE. Still with left sided pleuritic chest pain resolved now pt can be transition from heparin to eliquis today hopeful Dc tomorrow Review of Systems Review of Systems: All systems reviewed & are unremarkable except as noted in HPI and below Exam Narrative: Vital Signs Temp Pulse Resp BP Pulse Ox 06/02/21 10:00 55 L 06/02/21 08:00 36.6 C 55 L 16 137/67 96 06/02/21 06:00 58 L 06/02/21 04:00 36.2 C L 49 L 16 128/53 L 93 06/02/21 02:00 50 L 96 06/02/21 00:00 36.3 C L 60 16 138/68 96 06/01/21 22:00 55 L 06/01/21 20:00 36.3 C L 59 L 16 161/71 H 96 06/01/21 17:55 56 L 06/01/21 16:00 36.8 C 58 L 16 144/69 H 94 06/01/21 15:45 61 16 95 06/01/21 14:00 66 Intake and Output 06/01/21 06/02/21 06/02/21 23:59 07:59 15:59 Intake Total 950 200 240 Balance 950 200 240 Intake: Oral 950 200 240 Other:
--- NOTE | 2021-06-02 14:40 | PC.NURSE ---
This patient, Chon Packer, was transferred to [facility] on 06/02/21 at 1440. Personal belongings sent with patient. Report given to Shira BROTHERS. Appropriate documentation sent with patient.
--- NOTE | 2021-06-02 14:59 | PC.NURSE ---
This patient, Chon Packer, was received from [ to room 320 ] on 06/02/21 at 1450. Patient/family oriented to unit policies and routines
[2021-06-02] MEDS: APIXABAN 5 MG TABLET 10 MG PO (21:07)
[2021-06-03 06:00] VITALS: BP 143/71; PULSE 62; RESP 16; TEMP 36.2; O2SAT 97
[2021-06-03] MEDS: APIXABAN 5 MG TABLET 10 MG PO (07:59)
[2021-06-03] MEDS: OPTI-GEN TAB 1 TABLET PO (08:00)
[2021-06-03] MEDS: lisinopriL 10 MG TABLET PO (08:00)
--- NOTE | 2021-06-03 10:03 | PM.DS ---
DS: Admitting Diagnosis Discharge Date June 03, 2021 Admitting Diagnosis PE DS: Discharge Diagnosis Discharge Diagnosis (1) Pulmonary embolism: Code(s): I26.99 - Other pulmonary embolism without acute cor pulmonale Status: Acute Assessment and Plan: CTA of the chest shows bilateral central pulmonary emboli extending into all lobes of the lung with suggestion of right heart strain. He also has a patchy airspace opacity in the left lung which could represent pulmonary infarct. Lower extremity venous Dopplers is negative. Echocardiogram showed Left ventricular systolic function is normal, estimated at 55-60%. There is mild concentric increased left ventricular wall thickness. The left ventricular diastolic function is grade I diastolic dysfunction Transitioned to Eliquis. House to take the medication was discussed with the patient in detail. Questions answered. (2) Chest pain: Qualifiers: Chest pain type: unspecified Qualified Code(s): R07.9 - Chest pain, unspecified Code(s): R07.9 - Chest pain, unspecified Status: Resolved Assessment and Plan: PE. Eliquis on discharge. 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 Pt was on warfarin the in past and ASA prefers newer DOACS. (5) Prediabetes: Code(s): R73.03 - Prediabetes Status: Acute Assessment and Plan: A1c 5.8. DS: Summary Hospital Course Hospital Course: see plan and diagnoses Time Spent with Patient Time attestation: Total time spent providing and/or coordinating discharge services: Exam Narrative: Vital Signs Temp Pulse Resp BP Pulse Ox 06/02/21 10:00 55 L 06/02/21 08:00 36.6 C 55 L 16 137/67 96 06/02/21 06:00 58 L 06/02/21 04:00 36.2 C L 49 L 16 128/53 L 93 06/02/21 02:00 50 L 96 06/02/21 00:00 36.3 C L 60 16 138/68 96 06/01/21 22:00 55 L 06/01/21 20:00 36.3 C L 59 L 16 161/71 H 96 06/01/21 17:55 56 L 06/01/21 16:00 36.8 C 58 L 16 144/69 H 94 06/01/21 15:45 61 16 95 06/01/21 14:00 66 Intake and Output 06/01/21 06/02/21 06/02/21 23:59 07:59 15:59 Intake Total 950 200 240 Balance 950 200 240 Intake: Oral 950 200 240 Other: # Unmeasured Voi ds 3 4 Patient Weight 06/02/21
== END 2021-06-03 10:50 | disposition home or self-care (01) | DRG 176 ==
LOC: ANHED 14:51 → ANHIMU 14:59 → ANH3MEDSUR 06-03 10:03 → ANHIMU 06-05 11:11
PROVIDERS: Internal Medicine; Physician Assistant; Admitting Provider Internal Medicine; Emergency Provider Emergency Medicine; PCP Family Medicine; Visit Provider Chiropractor
DX: I26.99 Other pulmonary embolism without acute cor pulmonale (principal); D68.51 Activated protein C resistance; I10 Essential (primary) hypertension; Z20.822 Contact with and (suspected) exposure to COVID-19; E78.5 Hyperlipidemia, unspecified; R73.03 Prediabetes; Z86.718 Personal history of other venous thrombosis and embolism; Z80.0 Family history of malignant neoplasm of digestive organs; Z82.3 Family history of stroke; Z82.49 Family history of ischemic heart disease and other diseases of the circulatory system; Z79.899 Other long term (current) drug therapy; Z79.01 Long term (current) use of anticoagulants
CPT/HCPCS: 36415; 71046; 71275; 80048; 80053; 83690; 83735; 84484; 85025; 85027; 85610; 85730; 93005; 93306; 93970; 96365; 96366; A9270; C9803; G0378; J1644; Q9967; U0003; U0005

== ENCOUNTER 2021-12-11 10:49 | Outpatient (CLI) | payer MEDICARE, SELFPAY ==
[2021-12-11 19:48] LABS: Alanine Aminotransferase 28 U/L (6-50); Albumin Level 4.3 g/dL (3.5-5.1); Alkaline Phosphatase 74 U/L (38-126); Anion Gap 12 mmol/L (8-16); Aspartate Amino Transferase 33 U/L (17-59); Bilirubin,Total 0.5 mg/dL (0.2-1.3); Blood Urea Nitrogen 22 mg/dL (9-20); Calcium 9.2 mg/dL (8.4-10.2); Carbon Dioxide 26 mmol/L (22-30); Chloride 102 mmol/L (98-107); Estimated Glomerular Filt Rate > 60; Glucose 122 mg/dL (65-110); Potassium 4.2 mmol/L (3.4-5.0); Sodium 140 mmol/L (137-145); Uric Acid 6.7 mg/dL (3.5-8.5)
== END 2021-12-11 10:50 | disposition home or self-care (01) ==
LOC: ANHGOSHLAB 10:55
PROVIDERS: PCP Family Medicine; Visit Provider Family Medicine
DX: R73.03 Prediabetes (principal); I10 Essential (primary) hypertension; Z79.899 Other long term (current) drug therapy; M10.00 Idiopathic gout, unspecified site
CPT/HCPCS: 36415; 80053; 83036; 84550

== ENCOUNTER 2021-12-17 12:45 | Outpatient (CLI) | payer MEDICARE, SELFPAY ==
--- NOTE | ~2021-12-17 | XR_ITS ---
EXAM: XR hand RT min 3V DATE: 12/17/2021 13:03 HISTORY: M79.644 - Pain in right finger(s),3rd PIP joint pain/swellin . COMPARISON: None available. FINDINGS: Lateral view limited by overlapping fingers. Normal mineralization. No fracture or dislocat ion. No lytic or blastic lesion. Scattered osteoarthritic changes in the fingers and wrist. No erosio n or periosteal change. Vascular calcification. 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 Reviewed, dictated and finalized at location K. LOP DREDGER
== END 2021-12-17 12:46 | disposition home or self-care (01) ==
PROVIDERS: PCP Family Medicine; Visit Provider Family Medicine
DX: M19.041 Primary osteoarthritis, right hand (principal); M19.031 Primary osteoarthritis, right wrist
CPT/HCPCS: 73130

== ENCOUNTER 2021-12-31 07:27 | Outpatient (CLI) | payer MEDICARE, SELFPAY ==
--- NOTE | 2021-12-31 07:51 | ECHO_ITS ---
Patient Info Name: Chon Packer Age: 76 years : 1945 Gender: Male Ht: 68 in Wt: 205 lbs BSA: 2.14 m2 HR: 65 bpm BP: 158 / 84 mmHg Technical Quality: Good Exam Date: 12/31/2021 8:23 AM Exam Location: [facility] Patient Status: Outpatient Admit Date: 12/31/2021 Staff Ordering Physician: Thien Colbert MD Medical Records Tech: Violeta Diego RDCS Attending Provider: Thien Colbert MD Exam Type: CA echo doppler color flow Study Info Indications R01.1 - Cardiac murmur, unspecified Complete two-dimensional, color flow and Doppler transthoracic echocardiogram is performed. Summary 1. Complete two-dimensional, color flow and Doppler transthoracic echocardiogram is performed. 2. Left ventricular chamber dimension is normal. 3. Left ventricular systolic function is preserved, estimated at 50-55%. 4. The left ventricular diastolic function is grade I diastolic dysfunction. 5. E/e' 9 is minimally elevated. 6. Global longitudinal strain is abnormal at -14.4%. 7. There is mild aortic valve sclerosis. 8. The mitral valve has mildly calcified annulus. 9. There is trace mitral valve regurgitation. 10. No pulmonary hypertension, estimated pulmonary arterial systolic pressure is 19 mmHg. Left Ventricle E/e' 9 is minimally elevated. Global longitudinal strain is abnormal at -14.4%. Left ventricular systolic function is preserved, estimated at 50-55%. Left ventricular chamber dimension is normal. The left ventricular diastolic function is grade I diastolic dysfunction. Right Ventricle Right ventricular systolic function is normal and with normal TAPSE 2.1 cm. Right ventricular chamber dimension is normal. Left Atria Left atrial chamber dimension is normal. Right Atria Right atrial chamber dimension is normal. Aortic Valve The aortic valve is trileaflet. There is mild aortic valve sclerosis. There is no aortic valve stenosis. There is no aortic valve regurgitation. Pulmonic Valve There is no pulmonic regurgitation. Mitral Valve The mitral valve has mildly calcified annulus. There is no mitral valve stenosis. There is trace mitral valve regurgitation. Tricuspid Valve There is no tricuspid valve regurgitation. No pulmonary hypertension, estimated pulmonary arterial systolic pressure is 19 mmHg. Pericardium/Pleural There is no pericardial effusion. Inferior Vena Cava Normal inferior vena cava with >50% collapse upon inspiration consistent with normal right atrial pressure, 5 mmHg. Aorta The aortic root size at the sinus of Valsalva is normal. Left Ventricular Outflow Tract Name Value Normal LVOT 2D LVOT Diameter 1.9 cm LVOT Doppler LVOT Peak Gradient 5 mmHg LVOT Mean Gradient 3 mmHg LVOT VTI 24 cm LVOT VTI/AV VTI Ratio 0.9 LVOT Stroke Volume 68 ml LVOT CO 4.0 l/min LVOT CI 1.9 l/min/m2 Pulmonic Valve
== END 2021-12-31 07:28 | disposition home or self-care (01) ==
PROVIDERS: PCP Family Medicine; Visit Provider Family Medicine
DX: R01.1 Cardiac murmur, unspecified (principal); I10 Essential (primary) hypertension
CPT/HCPCS: 93306

== ENCOUNTER 2022-12-04 13:50 | Outpatient (CLI) | payer MEDICARE, SELFPAY ==
[2022-12-04 20:32] LABS: Alanine Aminotransferase 24 U/L (6-50); Albumin Level 4.3 g/dL (3.5-5.1); Alkaline Phosphatase 72 U/L (38-126); Anion Gap 9 mmol/L (8-16); Aspartate Amino Transferase 39 U/L (17-59); Bilirubin,Total 0.9 mg/dL (0.2-1.3); Blood Urea Nitrogen 22 mg/dL (9-20); Calcium 9.3 mg/dL (8.4-10.2); Carbon Dioxide 27 mmol/L (22-30); Chloride 103 mmol/L (98-107); Estimated Glomerular Filt Rate > 60; Glucose 104 mg/dL (65-110); Potassium 4.3 mmol/L (3.4-5.0); Sodium 139 mmol/L (137-145); Uric Acid 6.7 mg/dL (3.5-8.5)
[2022-12-04 21:35] LABS: Hemoglobin A1C 5.8 % (<5.7)
== END 2022-12-04 13:51 | disposition home or self-care (01) ==
LOC: ANHGOSHLAB 13:51
PROVIDERS: PCP Family Medicine; Visit Provider Family Medicine
DX: M10.00 Idiopathic gout, unspecified site (principal); R73.03 Prediabetes; I10 Essential (primary) hypertension
CPT/HCPCS: 36415; 80053; 83036; 84550

== ENCOUNTER 2023-02-11 12:36 | Outpatient (CLI) | payer MEDICARE, SELFPAY ==
--- NOTE | ~2023-02-11 | CT_ITS ---
EXAMINATION: CT soft tissue neck w con DATE: 02/11/2023 13:32 INDICATION: Odontogenic keratocyst. TECHNIQUE: Computed tomography (CT) of the neck was performed with 75 mL Omnipaque-350 intravenous co ntrast. Automated exposure control and iterative reconstruction technique were employed. The dose-jakub gth product was 572.32 mGy-cm. COMPARISON: Maxillofacial CT 12/31/2019 FINDINGS: There are sialoliths in the parotid glands. There is complete opacification of left maxilla ry sinus, which is small. There is mild mucosal thickening in the other paranasal sinuses. There is a 1.4 x 1.6 x 1.4 cm mass measuring soft tissue intensity with central relative hypodensity posterolat eral to the left maxilla and medial to left mandibular ramus that measured 2.0 x 1.5 x 2.0 cm on 12/12 . A skin marker overlies this area. There is mild cervical spondylosis. The orbits are normal. IMPRESSION: 1. 1.6 cm mass in the left buccal fat pad, decreased in size from 12/31/19. This finding is suspiciou s for abscess. Reviewed, dictated and finalized at location E. GRATION SOFTWARE DEVELOPER IMPRESSION: 1. 1.6 cm mass in the left buccal fat pad, decreased in size from 12/31/19. Thi s finding is suspicious for abscess.
[2023-02-11 13:26] LABS: Estimated Glomerular Filt Rate 59
== END 2023-02-11 12:37 | disposition home or self-care (01) ==
PROVIDERS: PCP Family Medicine
DX: D16.5 Benign neoplasm of lower jaw bone (principal)
CPT/HCPCS: 70491; Q9967

== ENCOUNTER 2024-08-06 07:02 | Outpatient (CLI) | payer MEDICARE, SELFPAY ==
--- NOTE | ~2024-08-06 | MR_ITS ---
MRI of the brain Clinical History: Amnesia Technique: Axial and sagittal T1-weighted images were acquired. These were followed by axial T2-weigh mary, diffusion weighted, gradient, and FLAIR images. Findings: No abnormal signal seen in the brain parenchyma. No acute infarct, intracranial hemorrhage, or mass lesion. Ventricles and subarachnoid spaces are unremarkable. Orbits are unremarkable. Major intracranial flow voids are intact. There is bilateral maxillary and bilateral ethmoid sinus disease. Remaining parana jn sinuses and mastoid air cells are clear. Sagittal midline structures are intact. IMPRESSION: No intracranial abnormality. Sinus disease, as above. Reviewed, dictated and finalized at location .
--- NOTE | ~2024-08-06 | US_ITS ---
US soft tissue head and neck Ordering provider: Thien Colbert MD History: . R22.1 - Localized swelling, mass and lump, neck . Technique: Ultrasound evaluation was done for the area of concern. Doppler sampling was done. Comparison: None. FINDINGS: Complex area is noted with blood flow in the left side of the neck which measures 0.9 x 0.5 x 1.4 cm. Differential include lymph node or a complex cyst. Further evaluation advised. Reviewed, dictated and finalized at location A.
== END 2024-08-06 07:03 | disposition home or self-care (01) ==
LOC: MICIMG 07:02
PROVIDERS: PCP Family Medicine; Visit Provider Family Medicine
DX: R22.1 Localized swelling, mass and lump, neck (principal); R41.3 Other amnesia
CPT/HCPCS: 70551; 76536

== ENCOUNTER 2024-09-21 12:39 | Inpatient (IN) | payer MEDICARE, SELFPAY ==
[2024-09-21] VITALS (11 sets, daily range): BP systolic 98–166; BP diastolic 56–111; PULSE 61–99; RESP 14–20; TEMP 36.5–37; O2SAT 97–100; BMI 29.7
--- NOTE | ~2024-09-21 | MR_ITS ---
EXAMINATION: MR brain/brain stem wo/w con DATE: 09/22/2024 14:36 INDICATION: complicated syncope TECHNIQUE: Magnetic resonance imaging (MRI) of the brain and brainstem was performed without intraven ous contrast. Sequences included sagittal T1 and axial T1-FSE, axial diffusion-weighted, axial 3D SWA IN, axial T2-weighted FLAIR, and axial T2-weighted Propeller. Postcontrast sagittal T1 and axial and coronal T1-weighted FSE was obtained. Apparent diffusion coefficient (ADC) maps, eADC, FILT_PHA 3D Ax ial CAROLINE, and Axial MINIP were created. COMPARISON: 08/06/2024; CT brain 09/21/2024 FINDINGS: No abnormal restricted diffusion to suggest acute ischemic infarct. No MRI evidence of hemorrhage or extra-axial collection. No suspicious foci of susceptibility to suggest prior intraparenchymal hemorr eliceo. Scattered foci of white matter hyperintensity, likely representing mild small vessel ischemic d isease. Mild generalized parenchymal volume loss. The basilar cisterns are patent. Flow voids are pre served. Mucosal thickening and an air-fluid level in the left maxillary sinus, mild bifrontal mucosal thickening, bilateral anterior ethmoid and left sphenoid mucosal thickening, the remaining aerated s paces are clear. Globes and orbital contents are within normal limits. No abnormal enhancement. IMPRESSION: No acute intracranial abnormality. MR findings that may represent acute left maxillary sinusitis in the appropriate clinical context Reviewed, dictated and finalized at [facility]. IMPRESSION: No acute intracranial abnormality. MR findings that may represent acute left maxillary sinusitis in the appropriat e clinical context
--- NOTE | ~2024-09-21 | CT_ITS ---
History: Trauma PROCEDURE: CT head without contrast. COMPARISON: None TECHNIQUE: Axial imaging of the head performed from the skull base to the vertex without IV contrast. Sagittal a nd coronal reformations obtained. DLP: 605 mGy-cm FINDINGS: The ventricles are enlarged. The dilatation of the ventricles is proportional to the degree of sulcal prominence, not uncommon in the senescent brain. Decreased attenuation is identified within the periventricular white matter, likely secondary to micr ovascular ischemic disease, in a patient of this age. There is no mass, mass effect or midline shift. There is no abnormal extra-axial fluid collection or intracranial hemorrhage. Dense opacification is redemonstrated in the left maxillary sinus. Remaining paranasal sinuses are clear. The mastoid air cells are well aerated. No acute displaced fractures within the overlying cranium. Impression: No acute intracranial hemorrhage or suspicious mass effect. Inflammatory sinus disease. Reviewed, dictated and finalized at location A. Impression: No acute intracranial hemorrhage or suspicious mass effect. Inflammatory sinus disease.
--- NOTE | ~2024-09-21 | XR_ITS ---
Exam: Chest 2 views Clinical history: Syncope TECHNIQUE: Frontal and lateral views of the chest were obtained. COMPARISON: 05/31/2021 FINDINGS: Heart is not enlarged. No pneumothorax. No pleural effusion. No free air under the diaphragm. No foca l pulmonary consolidation. Clips project over the left side of the neck. Mild elevation of the right hemidiaphragm, unchanged. IMPRESSION: 1. No acute pulmonary process identified. Reviewed, dictated and finalized at location A.
--- NOTE | 2024-09-21 12:43 | ECG_ITS ---
Test Date: 2024-09-21 12:46:47 Measurements Intervals [place] Rate: 59 P: 33 AK: 211 QRS: -60 QRSD: 110 T: 44 QT: 412 QTc: 408 Interpretive Statements SINUS BRADYCARDIA WITH FIRST DEGREE AV BLOCK LEFT ANTERIOR FASCICULAR BLOCK ABNORMAL ECG No previous ECG available for comparison Electronically Signed On 09-21-2024 14:05:45 CDT by Oliver Sylvester D.O.
[2024-09-21 13:05] LABS: Hematocrit 45.2 % (42.0-52.0); Hemoglobin 14.6 g/dL (14.0-18.0); Immature Granulocyte Percent A 0.3 % (0-0.5); Lymphocytes Absolute Auto 1.12 K/mm3 (0.9-3.2); Mean Corpuscular HGB Conc 32.3 g/dl (32-36); Mean Corpuscular Hemoglobin 30.5 pg (26-34); Mean Corpuscular Volume 94.4 fl (80-100); Nucleated Red Blood Cells Absolute Auto 0.000 K/mm3 (0.0-0.012); Nucleated Red Blood Cells Perc 0.0 % (0.0-0.2); Platelet Count Result 149 k/mm3 (150-375); Red Blood Count 4.79 M/mm3 (4.6-6.20); White Blood Count 10.2 K/mm3 (4.5-10.0)
[2024-09-21 13:30] LABS: Alanine Aminotransferase 26 U/L (6-50); Albumin Level 4.0 g/dL (3.5-5.1); Alkaline Phosphatase 77 U/L (38-126); Anion Gap 9 mmol/L (4-12); Aspartate Amino Transferase 34 U/L (17-59); Bilirubin,Total 0.9 mg/dL (0.2-1.3); Blood Urea Nitrogen 28 mg/dL (9-20); Calcium 9.2 mg/dL (8.4-10.2); Carbon Dioxide 25 mmol/L (22-30); Chloride 107 mmol/L (98-107); Estimated CRCL calculation 34 ml/min; Estimated Glomerular Filt Rate 42; Glucose 156 mg/dL (65-110); Potassium 4.5 mmol/L (3.4-5.0); Sodium 141 mmol/L (137-145); Total Protein 7.3 g/dL (6.3-8.2)
[2024-09-21] MEDS: LACTATED RINGERS 1,000 ML 999 ML IV CONT (14:23)
--- OUTSIDE RECORDS SUMMARY | 2024-09-21 14:24 | XMS_ITS | Clinical Summary ---
Author Organization [facility] [address] Address [address] [place] [address] Care Team Providers Care Teasel Setter Name Role Phone Jeanna Colbert MD Primary Care Provider Allergies Active Allergy Reactions Criticality Noted Date Comments Iodine Other (See comments) High Reaction: Throat Swelling, Shellfish Containing Products Other (See comments) High Reaction: Throat Swelling, Shrimp Swelling High 02/27/2023 throat Medications apixaban (ELIQUIS) 5 mg tablet [place] 1 tablet (5 mg total) per NG tube 2 (two) times a day Factor five clotting disorder 4 Active white petrolatum 42 % ointmentIndicat ions:skin irritation Apply topically 2 (two) times a day To left neck and left arm incisions 4 Active acetaminophen (TYLENOL) 325 mg tablet Administer per tube 2 tablets (650 mg total) every 4 (four) hours as needed for pain 4 Active gabapentin (NEURONTIN) solution 250 mg/5 mLIndications:P ostoperative Acute Pain Administer per tube 6 mL (300 mg total) 2 (two) times a day for 7 days, THEN 6 mL (300 mg total) daily for 7 days. 126 mL 4 Active cholecalciferol (VITAMIN D-3) 400 unit/mL drops Administer 2 mL (800 Units total) per feeding tube daily for 25 days 50 mL 4 Active calcium carbonate (OS-ODILIA) 1,250 mg (500 mg elemental) tabletIndicatio ns:Hypocalcemia Prevention Administer per tube 1 tablet (1,250 mg total) every 8 (eight) hours for 7 days, THEN 1 tablet (1,250 mg total) every 12 (twelve) hours for 7 days, THEN 1 tablet (1,250 mg total) daily for 7 days. 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 Never 02/27/2023 Q2: How many drinks containi ng alcohol do you have on a typical day when you are drinking? Patient does not drink Q3: How often do you have si x or more drinks on one occasion? Never 02/27/2023 Personal Safety Answer Date Recorded Have you ever been in or are you currently in a harmful physical or emotional relationship or is someone making you feel afraid or unsafe? Denies 03/07/2023 Sex and Gender Information Value Date Recorded Sex Assigned at Not on file Legal Sex Male 9:03 AM FIELD AGENT Gender Identity Not on file Sexual Orientation Not on file Obstetrics History Last Filed Vital Signs Vital Sign Reading Time Taken Comments Blood Pressure 113/60 03/21/2023 7:35 AM FIELD AGENT Pulse 77 03/21/2023 7:35 AM FIELD AGENT Temperature 37 C (98.6 F) 03/21/2023 7:35 AM FIELD AGENT Respiratory Rate 18 03/21/2023 7:35 AM FIELD AGENT Oxygen Saturation 97% 03/21/2023 7:35 AM FIELD AGENT Inhaled Oxygen Concentration - - Weight 96.8 kg (213 lb 6.4 oz) 12/15/2023 10:20 AM FIELD AGENT Height 172.7 cm (5' 7.99) 03/09/2023 11:[address] Body Mass Index 32.45 03/09/2023 11:15 AM FIELD AGENT Plan of Treatment Health Maintenance Due Date Last Done Comments Depression Screening 1945 Hepatitis C Screening 1945 DTaP/Tdap/Td Vaccine (1 - Tdap) 06/05/1958 Hepatitis B Screening 06/05/1965 Zoster Vaccine (1 of 2) 06/05/1997 Well Visit 65+ 06/05/2012 Fall Risk Assessment 03/21/2024 03/21/2023 Influenza Vaccine (#1) 2024 12/04/2022, 2021 Pneumococcal vaccine 65+ Completed 01/13/2023 Medical Devices Implanted Type Area Cod Clerk Device Identifier Shelf Expiration Date Model / Serial / Lot [employer] Allian Elbe Microvascular 3mm Ring Pin Protective Cover Jaw Assembly Latex Free [id number] - [id number] Implanted:Qty: 1 on 03/07/2023 by Cliff Paulino MD at [facility] [employer]ian [id number] 02/26/2027 [id number] / / [id number] Insurance [employer] MCR ADV REF [facility] T MEDICARE T MEDICARE AETNA [facility] Advance Directives For more information, please contact: [phone] Documents on File Type Date Recorded Patient Inside Sales Administrator Expl anation ADVANCE DIRECTIVE 03/07/2023 6:09 AM Power of Business Planning Director-Medical * Full Code (Latest Code Status on File) Date Activated Date Inactivated Comments 03/07/2023 3:48 PM 03/21/2023 6:16 PM Care Teams Teasel Setter Relationship Specialty Start Date End Date Jeanna Colbert MD PCP - General Family Practice 05/31/21
--- OUTSIDE RECORDS SUMMARY | 2024-09-21 14:24 | XMS_ITS | Clinical Summary ---
Author Organization [facility] Address [address], [facility] [address] [place] [address] Phone Care Team Providers Care Railway Signal Electrician Name Role Phone Unavailable Primary Care Provider Unavailabl e Allergies Active Allergy Reactions Criticality Noted Date Comments Flavoring Agent (Non-Screening) Anaphylaxis Medications polyethylene glycol (MIRALAX) Powder Mix the entire bottle with 64 oz of a clear liquid. Use as directed by the office for colonoscopy prep. 255 g 7 Active Family History Medical History Relation Name Comments Cancer Father colon Relation Name Status Comments Father Mother Social History Tobacco Use Types Packs/Day Years Used Date Smoking Tobacco: Never Smokeless Tobacco: Never Alcohol Use Standard Drinks/Week Comments No 0 (1 standard drink = 0.6 oz pur e alcohol) Sex and Gender Information Value Date Recorded Sex Assigned at Not on file Legal Sex Male 4:06 PM CDT Gender Identity Not on file Sexual Orientation Not on file Last Filed Vital Signs Vital Sign Reading Time Taken Comments Blood Pressure - - Pulse - - Temperature - - Respiratory Rate - - Oxygen Saturation - - Inhaled Oxygen Concentration - - Weight 102.1 kg (225 lb) 01/13/2017 11:00 AM FACIALIST Height 172.7 cm (5' 8) 01/13/2017 11:00 AM FACIALIST Body Mass Index 34.21 01/13/2017 11:00 AM FACIALIST Plan of Treatment Health Maintenance Due Date Last Done Comments Hepatitis C Virus (HCV) Screening 1945 TdaP Immunization 1945 Pneumococcal Immunization (5 0+ years) (1 of 1 - PCV) 06/05/1997 Zoster Immunization (1 of 2) 06/05/1997 Respiratory Syncytial Virus (RSV) Immunization (Adult) (1 - 1-dose 75+ series) 06/05/2022 SARS-COV-2 Immunization (2023-25 season) 2023 Influenza Immunization (#1) 2024 Hepatitis B Immunization Aged Out No longer eligible based on patient's age to complete this topic Human Papillomavirus (HPV) Immunization Aged Out No longer eligible b ased on patient's age to complete this topic Meningococcal Immunization (ACWY) Aged Out No longer eligible based on patient's age to complete this topic Rotavirus Immunization Aged Out No lo nger eligible based on patient's age to complete this topic Insurance [facility] MEDICARE
--- NOTE | 2024-09-21 14:37 | ED_ITS ---
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 Patient reports he had been in home setting a toilet and states he had been bearing down for bowel movement. Family found the patient approximately 6 ft from the toilet having had lost control of his bowels. Patient states he had not finished using the bathroom he prior to the syncopal episode. Upon arrival emergency department patient denies any pain or complaints. Patient states he has been eating and drinking well with no nausea vomiting or diarrhea. Patient states he has had some at set stomach. Patient was orthostatic upon arrival to the emergency department. Patient denies any pain or injury from the fall. Related Data Home Medications ?Medication ?Instructions ?Recorded ?Confirmed ?Last Taken ?Type vit C 250 mg-vit E 90 mg-zinc 40 1 tablet PO BID 05/31/21 09/21/24 09/20/24 History mg-copper 1 [id number] capsule (PreserVision AREDS-2) lisinopril 10 mg tablet 10 mg PO DAILY 09/21/24 09/21/24 09/21/24 History Allergies Allergy/AdvReac Type Severity Reaction Status Date / Time Shrimp Allergy Severe DIFFICULTY Uncoded 09/21/24 12:52 BREATHING Review of Systems 2 Review of Systems: All systems reviewed & are unremarkable except as noted in HPI and below PMFSH Past Medical History Medical History Vitamin D deficiency Pulmonary embolism (~05/2021) Macular degeneration Kidney stones Factor V deficiency Prediabetes Hemoglobin A1c was 5.8% in May 2021. Portal vein thrombosis (~2010) Idiopathic gout Essential (primary) hypertension Unspecified osteoarthritis, unspecified site Dyslipidemia Surgical History Surgical History History of colonoscopy with polypectomy (04/2020) Transverse colon polyp-tubular adenoma History of right inguinal hernia repair (1965) History of appendectomy (2008) History of arthroscopy of both knees (~1974) History of bilateral carpal tunnel release (~2012) [place] teeth extracted (01/2020) History of cholecystectomy (2008) Family History Family History Father Carcinoma of colon, Onset Age: 76 Family history of hypercholesterolemia Heart attack Mother Cerebrovascular accident Family history of hypercholesterolemia Family history of thyroid disease Sibling Malignant neoplasm of prostate Social History Social History Social History: Surrogate decision maker: Elayne Vogt, daughter. Code status: Full code. Caffeine- daily Smoking status: Never smoker Second hand tobacco smoke exposure: No Alcohol intake: never Substance use: never Substance use type: does not use Do You Feel Safe in your Home?: Yes Lack of Transportation: No Lack of Food: Never True Current Housing: I Have Housing Concerned About Future Housing: No Difficulty Paying Gas/Electric Bills: No Difficulty Paying for Meds: No Currently Unemployed: No Education: Bachelor's Degree Difficulty w/ Childcare or Family Care: No Living arrangements: with family Additional living arrangements comments: as of August 2020. Daughter, son-in-law, grandchildren are now living with him. Additional occupation/education comments: Retired from working for the [employer] Gender identity (if verbalized by the patient): Male Spiritual care concerns: No Agree to blood products: Yes Exam 2 Narrative: APPEARANCE: Well appearing, no pain, no distress, well-nourished. HEAD: normocephalic, atraumatic. EYES: PERRLA/EOMI, conjunctivae clear. NOSE: Normal no drainage EARS:TMS clear with good light reflex. THROAT: Pharynx clear, no exudate. NECK: Supple. No adenopathy, no masses. RESPIRATORY: Airway patent, respirations nonlabored. Clear to auscultation bilaterally, no rales, rhonchi, wheezing. CARDIOVASCULAR: Regular rate and rhythm without murmurs rubs or gallops. ABDOMINAL: Soft, nontender, nondistended, normal bowel sounds MUSCULOSKELETAL: Moves all extremities. Strength/ROM intact, No edema, No calf tenderness. NEURO: Alert. Cranial nerves II through XII intact. Good gait. Good coordination SKIN: Warm, dry. Normal Color Course Vital Signs Vital signs: Vital Signs Temperature 97.8 F 09/21/24 12:44 Pulse Rate 68 09/21/24 12:44 Respiratory Rate 16 09/21/24 12:44 Blood Pressure 100/56 L 09/21/24 12:44 Pulse Oximetry 99 09/21/24 12:44 Oxygen Delivery Room Air 09/21/24 12:44 Temperature 98.6 F 09/21/24 18:20 Pulse Rate 76 09/21/24 18:20 Respiratory Rate 19 09/21/24 18:20 Blood Pressure 166/69 H 09/21/24 18:20 Pulse Oximetry 100 09/21/24 18:20 Oxygen Delivery Room Air 09/21/24 12:44 Medical Decision Making MDM Narrative Medical decision making narrative: 79-year-old male presents emergency department for evaluation for a syncopal episode and fall from toilet. Patient was orthostatic and was treated with a L of lactated Ringer's. Patient is afebrile but does have a minor leukocytosis of 10.2 with a stable hemoglobin of 14.6. Patient does have a mild MARIELA with a creatinine of 1.6, glucose is 156. Chest x-ray no acute cardiopulmonary abnormality. Patient's orthostatic vitals were positive and patient was treated with a L of IV fluids. Patient did feel improved with ambulation. Patient did have a significant syncopal event and is unsure of why he had this syncopal event. Patient was offered admission for further workup and patient did prefer to stay for further evaluation for syncope. Case was discussed with hospitalist patient was accepted for admission to medical telemetry. Differential Diagnosis Differential Diagnosis: Syncope, subdural hematoma, subarachnoid hemorrhage, cardiac arrhythmia, orthostatic hypotension Vital Signs Vital Signs: Vital Signs Temperature 97.8 F 09/21/24 12:44 Pulse Rate 68 09/21/24 12:44 Respiratory Rate 16 09/21/24 12:44 Blood Pressure 100/56 L 09/21/24 12:44 Pulse Oximetry 99 09/21/24 12:44 Oxygen Delivery Room Air 09/21/24 12:44 Temperature 98.6 F 09/21/24 18:20 Pulse Rate 76 09/21/24 18:20 Respiratory Rate 19 09/21/24 18:20 Blood Pressure 166/69 H 09/21/24 18:20 Pulse Oximetry 100 09/21/24 18:20 Oxygen Delivery Room Air 09/21/24 12:44 Lab Data Lab results reviewed: Yes I reviewed the patient's lab results. 09/21/24 13:00 09/21/24 13:00 Labs: Lab Results 09/21/24 09/21/24 09/21/24 Range/Units 12:48 12:59 13:00 WBC 10.2 H (4.5-10.0) K/mm3 RBC 4.79 (4.6-6.20) M/mm3 Hgb 14.6 (14.0-18.0) g/dL Hct 45.2 (42.0-52.0) % MCV 94.4 (80-100) fl MCH 30.5 (26-34) pg MCHC 32.3 (32-36) g/dl RDW 13.2 (11.5-14.5) % Plt Count 149 L (150-375) k/mm3 MPV 9.7 (7.4-10.4) fl Immature Gran % (Auto) 0.3 (0-0.5) % Neut % (Auto) 79.6 H (45.5-73.1) % Lymph % (Auto) 10.9 L (18.3-44.2) % [place] % (Auto) 7.6 (2.6-8.5) % Eos % (Auto) 1.4 (0-4.4) % Baso % (Auto) 0.2 (0.2-1.2) % Lymph # (Auto) 1.12 (0.9-3.2) K/mm3 [place] # (Auto) 0.8 H (0.1-0.6) K/mm3 Eos # (Auto) 0.1 (0-0.3) K/mm3 Baso # (Auto) 0.0 (0.0-0.1) K/mm3 Abs Immat Gran (auto) 0.03 (0.00-0.031) K/mm3 Absolute Neuts (auto) 8.1 H (1.3-6.7) K/mm3 Absolute Nucleated RBC 0.000 (0.0-0.012) K/mm3 Nucleated RBC % 0.0 (0.0-0.2) % Sodium 141 (137-145) mmol/L Potassium 4.5 (3.4-5.0) mmol/L Chloride 107 (98-107) mmol/L Carbon Dioxide 25 (22-30) mmol/L Anion Gap 9 (4-12) mmol/L BUN 28 H (9-20) mg/dL Creatinine 1.60 H (0.7-1.3) mg/dL Estim Creat Clear Calc 34 ml/min Estimated GFR 42 L (59 - ) Glucose 156 H (65-110) mg/dL POC Capillary Glucose 159 H (65-105) mg/dl Calcium 9.2 (8.4-10.2) mg/dL Magnesium 2.0 (1.6-2.3) mg/dL Total Bilirubin 0.9 (0.2-1.3) mg/dL AST 34 (17-59) U/L ALT 26 (6-50) U/L Alkaline Phosphatase 77 (38-126) U/L Total Protein 7.3 (6.3-8.2) g/dL Albumin 4.0 (3.5-5.1) g/dL Imaging Data Radiologist's impression: Impressions Chest X-Ray 09/21/24 13:37 IMPRESSION: 1. No acute pulmonary process identified. Head CT 09/21/24 15:18 Impression: No acute intracranial hemorrhage or suspicious mass effect. Inflammatory sinus disease. ECG Data EKG #1: EKG Interpretation: bradycardia, sinus rhythm, no ectopy, non-specific ST changes, normal QT and NL axis Discharge Plan Discharge Clinical Impression: Syncope and collapse, Orthostatic hypotension Patient Disposition: Still a Patient Condition: Serious
--- NOTE | 2024-09-21 14:42 | PC.NURSE ---
Pt to CT via stretcher on tele and O2 monitor at this time
[2024-09-21 17:31] LABS: Magnesium 2.0 mg/dL (1.6-2.3)
[2024-09-21 18:08] LABS: Add Urine Microscopic? YES; Appearance Urine Clear (Clear); Glucose Urine UA Negative (Negative); Leukocyte Esterase Ur Trace LEU/UL (Negative); Nitrate Urine Negative (Negative); Non Pathogenic Casts 0-2; Specific Grav Ur 1.014 (1.001-1.035)
--- NOTE | 2024-09-21 18:20 | ADMGEN ---
This patient, Chon Packer, was admitted to Medical Room 259-01. Patient/family oriented to hospital policies and general routines including ID bracelet, bed and alarms, visiting hours, pain management, procedures, bathroom and other care routines, personal items, smoking policy, room service/diet, and visiting hours. Information on how to activate the Rapid Response Team has been discussed. Patient/Family are encouraged to report perceived risks to care and to ask questions if they do not understand what they are told or what they should do.
[2024-09-21] MEDS: LACTATED RINGERS 1,000 ML 125 ML IV CONT (18:37)
[2024-09-21 19:15] LABS: Thyroid Stimulating Hormone Reflex 1.200 uIU/mL (0.465-4.68)
--- NOTE | 2024-09-21 23:18 | P.HP_ITS ---
H&P: HPI History of Present Illness Date/Time: 09/21/24 23:18 Chief Complaint: Complicated syncope with hypotension Narrative: Chon is a 79-year-old male patient who was found unconscious at home for unknown length of time. He reports that the episode occurred while attempting a bowel movement, which was unsuccessful, and believes he may have stood up too quickly. His daughter who lives with him came home and found him unconscious. EMS had blood pressure of 70/40. Patient does not recall anything from the event until he woke up, except for worrying about abdominal pain prior to losing consciousness. He denies current abdominal pain, nausea, headache, dizziness, chest pain, or confusion. There is no history of similar syncopal episodes except after tetanus shots, which consistently cause him to pass out. He may have hit his head during the episode, but denies current headache or confusion, reporting nothing abnormal. No weakness or other abnormal neurological symptoms were reported. In ER patient found to be borderline bradycardic with first degree block and left axis deviation on EKG. No STEMI. Labs revealed WBC 10.2. Creatinine elevated at 1.6 and eGFR down to 42 with baseline around 60. UA does not appear infected. Normal H&H. CXR and CT scan of the head both unremarkable. Patient received IV fluids and admitted for syncope workup. He has a history of portal vein thrombosis and Factor V Leiden and is on apixaban. Patient states he feels normal now and has not had any signs of dizziness or injury while at the hospital. Review of Systems Review of Systems: All systems reviewed & are unremarkable except as noted in HPI and below PMFSH Past Medical History Medical History Vitamin D deficiency Pulmonary embolism (~05/2021) Macular degeneration Kidney stones Factor V deficiency Prediabetes Hemoglobin A1c was 5.8% in May 2021. Portal vein thrombosis (~2010) Idiopathic gout Essential (primary) hypertension Unspecified osteoarthritis, unspecified site Dyslipidemia Surgical History Surgical History History of colonoscopy with polypectomy (04/2020) Transverse colon polyp-tubular adenoma History of right inguinal hernia repair (1965) History of appendectomy (2008) History of arthroscopy of both knees (~1974) History of bilateral carpal tunnel release (~2012) [place] teeth extracted (01/2020) History of cholecystectomy (2008) Family History Family History Father Carcinoma of colon, Onset Age: 76 Family history of hypercholesterolemia Heart attack Mother Cerebrovascular accident Family history of hypercholesterolemia Family history of thyroid disease Sibling Malignant neoplasm of prostate Social History Social History Social History: Surrogate decision maker: Elayne Vogt, daughter. Code status: Full code. Caffeine- daily Smoking status: Never smoker Second hand tobacco smoke exposure: No Alcohol intake: never Substance use: never Substance use type: does not use Do You Feel Safe in your Home?: Yes Lack of Transportation: No Lack of Food: Never True Current Housing: I Have Housing Concerned About Future Housing: No Difficulty Paying Gas/Electric Bills: No Difficulty Paying for Meds: No Currently Unemployed: No Education: Bachelor's Degree Difficulty w/ Childcare or Family Care: No Living arrangements: with family Additional living arrangements comments: as of August 2020. Daughter, son-in-law, grandchildren are now living with him. Additional occupation/education comments: Retired from working for the [employer] Gender identity (if verbalized by the patient): Male Spiritual care concerns: No Agree to blood products: Yes Meds Home Medications and Allergies Home Medications ?Medication ?Instructions ?Recorded ?Confirmed ?Type vit C 250 mg-vit E 90 mg-zinc 40 1 tablet PO BID 05/31/21 09/21/24 History mg-copper 1 [id number] capsule (PreserVision AREDS-2) indomethacin 75 mg 75 mg PO BID PRN GOUT #30 caps 01/20/23 09/21/24 Rx capsule,extended release apixaban 5 mg tablet (Eliquis) 5 mg PO BID #180 tabs 06/28/24 09/21/24 Rx atorvastatin 10 mg tablet (Lipitor) 10 mg PO QHS #90 tabs 07/21/24 09/21/24 Rx fluticasone propionate 50 2 spray intranasal DAILY #16 grams 08/11/24 09/21/24 Rx mcg/actuation nasal spray,suspension (Flonase Allergy Relief) lisinopril 10 mg tablet 10 mg PO DAILY 09/21/24 09/21/24 History Allergies Allergy/AdvReac Type Severity Reaction Status Date / Time Shrimp Allergy Severe DIFFICULTY Uncoded 09/21/24 12:52 BREATHING Vital Signs Vital Signs - 24 hr 09/21/24 12:44 09/21/24 13:44 09/21/24 13:44 Temperature 36.6 C Pulse Rate 68 67 70 Respiratory Rate 16 Blood Pressure 100/56 L 123/58 L 98/84 L Pulse Oximetry 99 Oxygen Delivery Room Air 09/21/24 13:44 09/21/24 14:30 09/21/24 15:20 Temperature Pulse Rate 76 61 75 Respiratory Rate 16 17 Blood Pressure 117/59 L 136/63 133/111 H Pulse Oximetry 100 99 Oxygen Delivery 09/21/24 16:17 09/21/24 16:18 09/21/24 16:18 Temperature Pulse Rate 74 88 94 Respiratory Rate Blood Pressure 141/65 H 151/83 H 128/83 Pulse Oximetry Oxygen Delivery 09/21/24 17:10 09/21/24 18:20 09/21/24 20:38 Temperature 36.5 C 37.0 C 36.5 C Pulse Rate 84 76 61 Respiratory Rate 14 19 20 Blood Pressure 156/84 H 166/69 H 143/56 H Pulse Oximetry 99 100 97 Oxygen Delivery Exam Narrative: GENERAL: Well-appearing, well-nourished, and in no acute distress. HEAD: Normocephalic, atraumatic. ENT:? Mucous membranes moist. CHEST: Clear to auscultation.? No respiratory distress. HEART: Regular rate and rhythm. ? Normal peripheral pulses. ABDOMEN: Soft, nontender, nondistended. EXTREMITIES: Normal range of motion. No peripheral edema. SKIN: Warm dry normal color NEURO: Alert and oriented x3. PSYCH: Normal mood and affect H&P: Results Labs Labs: Short CBC 09/21/24 Range/Units 13:00 WBC 10.2 H (4.5-10.0) K/mm3 Hgb 14.6 (14.0-18.0) g/dL Hct 45.2 (42.0-52.0) % Plt Count 149 L (150-375) k/mm3 BMP 09/21/24 13:00 Sodium 141 Potassium 4.5 Chloride 107 Carbon Dioxide 25 BUN 28 H Creatinine 1.60 H Glucose 156 H Calcium 9.2 Liver Function 09/21/24 Range/Units 13:00 Total Bilirubin 0.9 (0.2-1.3) mg/dL AST 34 (17-59) U/L ALT 26 (6-50) U/L Alkaline Phosphatase 77 (38-126) U/L Albumin 4.0 (3.5-5.1) g/dL Urine 09/21/24 Range/Units 17:54 Urine Color Yellow (Yellow) Urine Appearance Clear (Clear) Urine pH 5.0 (5.0-9.0) Ur Specific [place] 1.014 (1.001-1.035) Urine Protein Negative (Negative) mg/dL Urine Glucose (UA) Negative (Negative) mg/dL Pulse Oximetry SpO2 results: 97-99% on room air Attestation: I personally reviewed and interpreted this pulse oximetry as follows: Interpretation: No need for supplemental oxygenation at this time ECG Attestation: I personally reviewed and interpreted this ECG as follows: ECG completion date: 09/21/24 ECG completion time: 12:46 Prior ECG tracings: not available for review Interpretation: Sinus bradycardia with first-degree AV block rate of 59 SD interval 211 QRS duration 110 QTC 408 QRS axis -60? left axis deviation no STEMI or acute ischemic changes noted Imaging Chest x-ray: Radiologist's impression: Exam: Chest 2 views Clinical history: Syncope TECHNIQUE: Frontal and lateral views of the chest were obtained. COMPARISON: 05/31/2021 FINDINGS: Heart is not enlarged. No pneumothorax. No pleural effusion. No free air under the diaphragm. No focal pulmonary consolidation. Clips project over the left side of the neck. Mild elevation of the right hemidiaphragm, unchanged. IMPRESSION: 1. No acute pulmonary process identified. Reviewed, dictated and finalized at location A. CT scan - head: Radiologist's impression: History: Trauma PROCEDURE: CT head without contrast. COMPARISON: None TECHNIQUE: Axial imaging of the head performed from the skull base to the vertex without IV contrast. Sagittal and coronal reformations obtained. DLP: 605 mGy-cm FINDINGS: The ventricles are enlarged. The dilatation of the ventricles is proportional to the degree of sulcal prominence, not uncommon in the senescent brain. Decreased attenuation is identified within the periventricular white matter, likely secondary to microvascular ischemic disease, in a patient of this age. There is no mass, mass effect or midline shift. There is no abnormal extra-axial fluid collection or intracranial hemorrhage. Dense opacification is redemonstrated in the left maxillary sinus. Remaining paranasal sinuses are clear. The mastoid air cells are well aerated. No acute displaced fractures within the overlying cranium. Impression: No acute intracranial hemorrhage or suspicious mass effect. Inflammatory sinus disease. Reviewed, dictated and finalized at location A. Assessment and Plan Assessment and plan (1) Syncope and collapse: Code(s): R55 - Syncope and collapse Status: Acute Assessment and Plan: -Complicated syncope with presumption of vasovagal event but unwitnessed and unknown downtime -Hypotensive for EMS 70/40 -Improved blood pressure after IV fluids -MARIELA found on admission, recheck labs in AM--DC fluids if normalized -Patient admitted on IV fluids for syncope workup including telemetry, Echocardiogram and MRI of brain -Abdominal pain symptoms before event have spontaneously resolved -Consider CT chest/abd/pelvis if they return (2) MARIELA (acute kidney injury): Code(s): N17.9 - Acute kidney failure, unspecified Status: Acute Assessment and Plan: -See above (3) Factor V deficiency: Code(s): D68.2 - Hereditary deficiency of other clotting factors Status: Chronic Assessment and Plan: -On apixaban, continue home medication (4) Essential (primary) hypertension: Code(s): I10 - Essential (primary) hypertension Status: Chronic Assessment and Plan: -Continue home medications -Prior hypotension felt to be sequela of vasovagal syncope (5) Dyslipidemia: Code(s): E78.5 - Hyperlipidemia, unspecified Status: Chronic Assessment and Plan: -Continue home medications (6) Prediabetes: Code(s): R73.03 - Prediabetes Status: Chronic Assessment and Plan: -Noted history, ordered A1c with AM labs -Heart healthy diet for now Quality VTE Prophylaxis VTE prophylaxis: pharmacologic ordered (apixaban) Hospitalist [facility] Advance Care Plan I have confirmed that the patient's Advanced Care Plan is present, code status is documented, or surrogate decision maker is listed in patient medical record.: Yes Medication Reconciliation I have utilized all available resources to obtain, update and review the patients current medications (includes all prescriptions, OTC, herbals, cannabis, and nutritional supplements).: Yes
[2024-09-22] VITALS (9 sets, daily range): BP systolic 123–145; BP diastolic 45–51; PULSE 45–85; RESP 16–20; TEMP 36.6; O2SAT 96–98
--- NOTE | 2024-09-22 | ECHO_ITS ---
Patient Info Name: Chon Packer Age: 79 years : 1945 Gender: Male Ht: 68 in Wt: 195 lbs BSA: 2.08 m2 HR: 49 bpm BP: 123 / 46 mmHg Technical Quality: Good Exam Date: 09/22/2024 11:27 AM Patient Status: O Admit Date: 09/21/2024 Exam Type: CA echo doppler color flow Complete two-dimensional, color flow and Doppler transthoracic echocardiogram is performed. Staff Referring Physician: Sebastián Simental Litigation Examiner: Christy Brown Attending Provider: Jordon Salinas Summary 1. Complete two-dimensional, color flow and Doppler transthoracic echocardiogram is performed. 2. Left ventricular chamber dimension is normal. 3. Left ventricular systolic function is normal, estimated at 55-60. 4. The left ventricular diastolic function is normal. 5. E/e' 8 is minimally elevated. 6. Left atrial chamber dimension is mildly enlarged. 7. There is moderate aortic valve sclerosis. 8. There is trace mitral valve regurgitation. 9. There is trace tricuspid valve regurgitation. 10. There is trace pulmonic regurgitation. Left Ventricle E/e' 8 is minimally elevated. Left ventricular chamber dimension is normal. Left ventricular systolic function is normal, estimated at 55-60. The left ventricular diastolic function is normal. Right Ventricle Right ventricular chamber dimension is normal. Right ventricular systolic function is normal and with normal TAPSE 2.0 cm. Left Atria Left atrial chamber dimension is mildly enlarged. Right Atria Right atrial chamber dimension is normal. Aortic Valve The aortic valve is trileaflet. There is moderate aortic valve sclerosis. There is no aortic valve stenosis. There is no aortic valve regurgitation. Pulmonic Valve There is trace pulmonic regurgitation. Mitral Valve There is no mitral valve stenosis. There is trace mitral valve regurgitation. Tricuspid Valve There is trace tricuspid valve regurgitation. RVSP is not measured due to an inadequate TR jet. Pericardium/Pleural There is no pericardial effusion. Inferior Vena Cava Normal inferior vena cava with >50% collapse upon inspiration consistent with normal right atrial pressure, 5 mmHg. Aorta The aortic root size at the sinus of Valsalva is normal. Left Ventricular Outflow Tract Name Value Normal LVOT 2D LVOT Diameter 2.0 cm LVOT Doppler LVOT Peak Velocity 119 cm/s LVOT Peak Gradient 6 mmHg LVOT Mean Gradient 3 mmHg LVOT VTI 36 cm LVOT VTI/AV VTI Ratio 1.0 LVOT Stroke Volume 117 ml LVOT CO 5.7 l/min LVOT CI 2.7 l/min/m2 Pulmonic Valve Name Value Normal RVOT Doppler RVOT Peak Velocity 60 cm/s RVOT Peak Gradient 1 mmHg PV Doppler PV Peak Velocity 81 cm/s PV Peak Gradient 3 mmHg Mitral Valve Name Value Normal MV Diastolic Function MV E Peak Velocity 85 cm/s MV A Peak Velocity 81 cm/s MV E/A 1.1 MV Decel Time (PW) 217 ms MV Annular TDI MV E/e' (Septal) 11.4 MV E/e' (Lateral) 7.4 MV E/e' (Average) 9.4 Tricuspid Valve Name Value Normal Estimated PAP/RSVP RA Pressure 5 mmHg <=5 Aortic Valve Name Value Normal AV Doppler AV Peak Velocity 165 cm/s AV Peak Gradient 11 mmHg AV Mean Gradient 6 mmHg AV VTI 36 cm AV Area (Cont Eq VTI) 3.2 cm2 >=3.0 AV Area (Cont Eq Joaquin) 2.3 cm2 AV DI (Joaquin) 0.72 AV Regurgitation 2D LVOT Area 3.3 cm2 Ventricles Name Value Normal LV Dimensions 2D/MM IVS Diastolic Thickness (2D) 1.0 cm 0.6-1.0 LVID Diastole (2D) 5.0 cm 4.2-5.8 LVIW Diastolic Thickness (2D) 0.9 cm 0.6-1.0 LVID Systole (2D) 3.2 cm 2.5-4.0 LVOT Diameter 2.0 cm LV Mass (2D Cubed) 173.57 g 88.00-224.00 LV Mass Index (2D Cubed) 83 g/m2 49-115 Relative Wall Thickness (2D) 0.36 <=0.42 LV Fractional Shortening/Ejection Fraction 2D/MM LV Fractional Shortening (2D) 37 % 25-43 LV EF (2D Teichholz) 66 % LV Diastolic Volume (4C MOD) 102 ml LV EF (4C MOD) 52 % LV Diastolic Volume (2C MOD) 118 ml LV EF (2C MOD) 58 % LV Diastolic Volume (BP MOD) 111 ml 62-150 LV Diastolic Volume Index (BP MOD) 54 ml/m2 34-74 LV Systolic Volume (BP MOD) 50 ml 21-61 LV Systolic Volume Index (BP MOD) 24 ml/m2 11-31 LV EF (BP MOD) 55 % 52-72 LV Diastolic Length (4C) 9.1 cm LV Systolic Length (4C) 7.5 cm LV Stroke Volume (4C MOD) 53 ml Atria Name Value Normal LA Dimensions LA Volume (4C A-L) 41 ml LA Volume (BP A-L) 39 ml RA Dimensions RA Systolic Major Abbott Length (4C) 6.2 cm 2.1-2.7 RA Area (4C) 17.2 cm2 <=18.0 Report Signatures
[2024-09-22] MEDS: LACTATED RINGERS 1,000 ML 125 ML IV CONT ×2 (02:34→11:58)
[2024-09-22 06:38] LABS: Hematocrit 41.2 % (42.0-52.0); Hemoglobin 13.4 g/dL (14.0-18.0); Immature Granulocyte Percent A 0.1 % (0-0.5); Immature Platelet Fraction Pct 2.1 % (0.9-11.2); Lymphocytes Absolute Auto 2.12 K/mm3 (0.9-3.2); Mean Corpuscular HGB Conc 32.5 g/dl (32-36); Mean Corpuscular Hemoglobin 30.7 pg (26-34); Mean Corpuscular Volume 94.5 fl (80-100); Nucleated Red Blood Cells Absolute Auto 0.000 K/mm3 (0.0-0.012); Nucleated Red Blood Cells Perc 0.0 % (0.0-0.2); Platelet Count Result 139 k/mm3 (150-375); Red Blood Count 4.36 M/mm3 (4.6-6.20); White Blood Count 8.0 K/mm3 (4.5-10.0)
[2024-09-22 06:56] LABS: Hemoglobin A1C 5.8 % (<5.7)
[2024-09-22 07:02] LABS: Alanine Aminotransferase 19 U/L (6-50); Albumin Level 3.2 g/dL (3.5-5.1); Alkaline Phosphatase 61 U/L (38-126); Anion Gap 3 mmol/L (4-12); Aspartate Amino Transferase 28 U/L (17-59); Bilirubin,Total 0.9 mg/dL (0.2-1.3); Blood Urea Nitrogen 22 mg/dL (9-20); Calcium 8.5 mg/dL (8.4-10.2); Carbon Dioxide 26 mmol/L (22-30); Chloride 109 mmol/L (98-107); Estimated CRCL calculation 49 ml/min; Estimated Glomerular Filt Rate > 60; Glucose 89 mg/dL (65-110); Magnesium 1.9 mg/dL (1.6-2.3); Potassium 4.6 mmol/L (3.4-5.0); Sodium 138 mmol/L (137-145); Total Protein 5.9 g/dL (6.3-8.2)
[2024-09-22] MEDS: APIXABAN 5 MG TABLET PO ×2 (08:37→20:05)
--- NOTE | 2024-09-22 11:59 | P.PNIM_ITS ---
Progress Note: A&P Assessment and Plan (1) Syncope and collapse: Code(s): R55 - Syncope and collapse Status: Acute Assessment and Plan: * Complicated syncope with presumption of vasovagal event but unwitnessed and unknown downtime * Hypotensive for EMS 70/40 * Improved blood pressure after IV fluids * MARIELA found on admission, recheck labs in AM--DC fluids if normalized * Patient admitted on IV fluids for syncope workup including telemetry, Echocardiogram and MRI of brain * Abdominal pain symptoms before event have spontaneously resolved * Consider CT chest/abd/pelvis if they return. * Patient reports that he had went up to his cabin 1 1/2 months ago to mow the grass. He later woke up on his back looking [place], patient unsure how long he had been there. * Brain MRI showed: no acute intracranial abnormality. * Echocardiogram showed: Summary 1. Complete two-dimensional, color flow and Doppler transthoracic echocardiogram is performed. 2. Left ventricular chamber dimension is normal. 3. Left ventricular systolic function is normal, estimated at 55-60. 4. The left ventricular diastolic function is normal. 5. E/e' 8 is minimally elevated. 6. Left atrial chamber dimension is mildly enlarged. 7. There is moderate aortic valve sclerosis. 8. There is trace mitral valve regurgitation. 9. There is trace tricuspid valve regurgitation. 10. There is trace pulmonic regurgitation. * Cardiology consulted. (2) MARIELA (acute kidney injury): Code(s): N17.9 - Acute kidney failure, unspecified Status: Acute Assessment and Plan: * Creatinine improved from 1.60>1.08. (3) Bradycardia: Code(s): R00.1 - Bradycardia, unspecified Status: Acute Assessment and Plan: * Heart rate 46. * Bradycardia with 2 episodes of syncope. * Telemetry. * Cardiology consult placed. 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 (5) Prediabetes: Code(s): R73.03 - Prediabetes Status: Chronic Assessment and Plan: * HgbA1C 5.8%. (6) Dyslipidemia: Code(s): E78.5 - Hyperlipidemia, unspecified Status: Chronic Assessment and Plan: * Atorvastatin 10 mg PO qhs. Subjective Date/time seen: 09/22/24 11:59 Interval history: Patient sitting up in bed. With family at bedside. Patient denies chest pain, palpitations, headache, dizziness, nausea, or vomiting. Patient unsure if he was out in bathroom and if so for how long. Patient reports that he had went up to his cabin 1 1/2 months ago to mow the grass. He later woke up on his [place], patient unsure how long he had been there. Review of Systems Review of Systems: All systems reviewed & are unremarkable except as noted in HPI and below Exam Const: General: comfortable and no acute distress Resp: Effort & Inspection: normal respiratory effort Auscultation: clear to auscultation bilaterally Cardio: Rate: bradycardic Rhythm: regular rhythm Other: Telemetry SB- 46. GI: GI Palp: Yes Soft to palpation Auscultation: normal bowel sounds Skin: General skin exam: normal color Neuro: Speech: normal speech Extrem: General: no pedal edema Psych: Mental Status: mental status grossly normal Affect: normal affect Objective Data Vital Signs Vital Signs: Vital Signs - 24 hr 09/21/24 12:44 09/21/24 13:44 09/21/24 13:44 Temperature 97.8 F Pulse Rate 68 67 70 Respiratory Rate 16 Blood Pressure 100/56 L 123/58 L 98/84 L Pulse Oximetry 99 Oxygen Delivery Room Air 09/21/24 13:44 09/21/24 14:30 09/21/24 15:20 Temperature Pulse Rate 76 61 75 Respiratory Rate 16 17 Blood Pressure 117/59 L 136/63 133/111 H Pulse Oximetry 100 99 Oxygen Delivery 09/21/24 16:17 09/21/24 16:18 09/21/24 16:18 Temperature Pulse Rate 74 88 94 Respiratory Rate Blood Pressure 141/65 H 151/83 H 128/83 Pulse Oximetry Oxygen Delivery 09/21/24 17:10 09/21/24 18:20 09/21/24 20:00 Temperature 97.7 F 98.6 F Pulse Rate 84 76 99 Respiratory Rate 14 19 Blood Pressure 156/84 H 166/69 H Pulse Oximetry 99 100 Oxygen Delivery 09/21/24 20:10 09/21/24 20:38 09/22/24 00:00 Temperature 97.7 F Pulse Rate 61 61 61 Respiratory Rate 20 20 Blood Pressure 143/56 H Pulse Oximetry 97 97 Oxygen Delivery Room Air 09/22/24 04:00 09/22/24 06:00 09/22/24 08:00 Temperature 97.9 F Pulse Rate 48 L 85 50 L Respiratory Rate 20 Blood Pressure 123/46 L Pulse Oximetry 98 Oxygen Delivery 09/22/24 08:35 Temperature Pulse Rate Respiratory Rate Blood Pressure Pulse Oximetry Oxygen Delivery Room Air Intake/Output Intake/Output: Intake & Output 09/19/24 09/20/24 09/21/24 09/22/24 23:59 23:59 23:59 23:59 Intake Total 1000 2780 Balance 1000 2780 Meds/Results Medications: Active Medications Generic Name Dose Route Start Last Admin Trade Name Freq PRN Reason Stop Dose Admin Apixaban 5 mg 09/22/24 09:00 09/22/24 08:37 Apixaban 5 Mg Tablet PO 5 mg Q12HR SHAYNA Administration Atorvastatin Calcium 10 mg 09/22/24 21:00 Atorvastatin 10 Mg Tablet PO QHS SHAYNA Fluticasone Propionate 2 spray 09/21/24 23:15 Fluticasone Propionate 0.05% Na Spr 16 Gm Btl (*Bkc) NASAL DAILY PRN allergy/nasal congestion Lactated Ringer's 1,000 mls @ 125 mls/hr 09/21/24 17:05 09/22/24 11:58 Lr - Lactated Ringers Iv IV CONT 125 mls/hr .Q8H SHAYNA Administration Perflutren Lipid Microsphere 0 ml 09/22/24 01:15 Perflutren Lipid Microspheres 1.5 Ml Vial Diluted To 10 Ml Total Volume IV PUSH 09/25/24 01:15 ONCE PRN adequate visualization Protocol Radiology Results: ITS Impressions Chest X-Ray 09/21/24 13:37 IMPRESSION: 1. No acute pulmonary process identified. Head CT 09/21/24 15:18 Impression: No acute intracranial hemorrhage or suspicious mass effect. Inflammatory sinus disease. Labs Labs: Laboratory Results - last 24 hr 09/21/24 09/21/24 09/21/24 12:48 12:59 13:00 WBC 10.2 H RBC 4.79 Hgb 14.6 Hct 45.2 MCV 94.4 MCH 30.5 MCHC 32.3 RDW 13.2 Plt Count 149 L MPV 9.7 Immature Gran % (Auto) 0.3 Neut % (Auto) 79.6 H Lymph % (Auto) 10.9 L [place] % (Auto) 7.6 Eos % (Auto) 1.4 Baso % (Auto) 0.2 Lymph # (Auto) 1.12 [place] # (Auto) 0.8 H Eos # (Auto) 0.1 Baso # (Auto) 0.0 Abs Immat Gran (auto) 0.03 Absolute Neuts (auto) 8.1 H Absolute Nucleated RBC 0.000 Nucleated RBC % 0.0 % Immature Plt Fraction Sodium 141 Potassium 4.5 Chloride 107 Carbon Dioxide 25 Anion Gap 9 BUN 28 H Creatinine 1.60 H Estim Creat Clear Calc 34 Estimated GFR 42 L Glucose 156 H POC Capillary Glucose 159 H Hemoglobin A1c Calcium 9.2 Magnesium 2.0 Total Bilirubin 0.9 AST 34 ALT 26 Alkaline Phosphatase 77 Total Protein 7.3 Albumin 4.0 TSH (Reflex) Urine Color Urine Appearance Urine pH Ur Specific [place] Urine Protein Urine Glucose (UA) Urine Ketones Ur Blood (Man) Urine Nitrate Urine Bilirubin Urine Urobilinogen Leukocyte Esterase Rfl Urine RBC Urine WBC Ur Squamous Epith Cells Urine Bacteria Urine Casts 09/21/24 09/21/24 09/22/24 17:54 17:55 06:23 WBC 8.0 RBC 4.36 L Hgb 13.4 L Hct 41.2 L MCV 94.5 MCH 30.7 MCHC 32.5 RDW 13.2 Plt Count 139 L MPV 9.5 Immature Gran % (Auto) 0.1 Neut % (Auto) 60.6 Lymph % (Auto) 26.5 [place] % (Auto) 9.6 H Eos % (Auto) 2.8 Baso % (Auto) 0.4 Lymph # (Auto) 2.12 [place] # (Auto) 0.8 H Eos # (Auto) 0.2 Baso # (Auto) 0.0 Abs Immat Gran (auto) 0.01 Absolute Neuts (auto) 4.8 Absolute Nucleated RBC 0.000 Nucleated RBC % 0.0 % Immature Plt Fraction 2.1 Sodium 138 Potassium 4.6 Chloride 109 H Carbon Dioxide 26 Anion Gap 3 L BUN 22 H Creatinine 1.08 Estim Creat Clear Calc 49 Estimated GFR > 60 Glucose 89 POC Capillary Glucose Hemoglobin A1c 5.8 H Calcium 8.5 Magnesium 1.9 Total Bilirubin 0.9 AST 28 ALT 19 Alkaline Phosphatase 61 Total Protein 5.9 L Albumin 3.2 L TSH (Reflex) 1.200 Urine Color Yellow Urine Appearance Clear Urine pH 5.0 Ur Specific [place] 1.014 Urine Protein Negative Urine Glucose (UA) Negative Urine Ketones Trace H Ur Blood (Man) Negative Urine Nitrate Negative Urine Bilirubin Negative Urine Urobilinogen 0.2 Leukocyte Esterase Rfl Trace H Urine RBC 0-2 Urine WBC 0-5 Ur Squamous Epith Cells None seen Urine Bacteria None seen Urine Casts 0-2 Quality VTE Prophylaxis VTE prophylaxis: pharmacologic ordered
[2024-09-22] MEDS: ATORVASTATIN 10 MG TABLET PO (20:05)
[2024-09-23] VITALS (7 sets, daily range): BP systolic 145–161; BP diastolic 49–91; PULSE 45–92; RESP 16–18; TEMP 36.2–36.6; O2SAT 95–99
[2024-09-23 04:46] LABS: Hematocrit 41.3 % (42.0-52.0); Hemoglobin 13.6 g/dL (14.0-18.0); Immature Granulocyte Percent A 0.1 % (0-0.5); Immature Platelet Fraction Pct 2.1 % (0.9-11.2); Lymphocytes Absolute Auto 2.21 K/mm3 (0.9-3.2); Mean Corpuscular HGB Conc 32.9 g/dl (32-36); Mean Corpuscular Hemoglobin 30.5 pg (26-34); Mean Corpuscular Volume 92.6 fl (80-100); Nucleated Red Blood Cells Absolute Auto 0.000 K/mm3 (0.0-0.012); Nucleated Red Blood Cells Perc 0.0 % (0.0-0.2); Platelet Count Result 146 k/mm3 (150-375); Red Blood Count 4.46 M/mm3 (4.6-6.20); White Blood Count 7.3 K/mm3 (4.5-10.0)
[2024-09-23 05:04] LABS: Alanine Aminotransferase 18 U/L (6-50); Albumin Level 3.4 g/dL (3.5-5.1); Alkaline Phosphatase 69 U/L (38-126); Anion Gap 4 mmol/L (4-12); Aspartate Amino Transferase 30 U/L (17-59); Bilirubin,Total 0.8 mg/dL (0.2-1.3); Blood Urea Nitrogen 17 mg/dL (9-20); Calcium 8.9 mg/dL (8.4-10.2); Carbon Dioxide 27 mmol/L (22-30); Chloride 108 mmol/L (98-107); Estimated CRCL calculation 54 ml/min; Estimated Glomerular Filt Rate > 60; Glucose 91 mg/dL (65-110); Magnesium 1.9 mg/dL (1.6-2.3); Potassium 4.4 mmol/L (3.4-5.0); Sodium 139 mmol/L (137-145); Total Protein 6.4 g/dL (6.3-8.2)
[2024-09-23] MEDS: APIXABAN 5 MG TABLET PO (09:09)
--- NOTE | 2024-09-23 13:54 | P.DS_ITS ---
DS: Admitting Diagnosis Discharge Date 09/23/24 Admitting Diagnosis Syncope with Bradycardia/Hypotension DS: Discharge Diagnosis Discharge Diagnosis (1) Syncope and collapse: Code(s): R55 - Syncope and collapse Status: Acute Assessment and Plan: * Complicated syncope with presumption of vasovagal event but unwitnessed and unknown downtime * Hypotensive for EMS 70/40 * Improved blood pressure after IV fluids * MARIELA found on admission, recheck labs in AM--DC fluids if normalized * Patient admitted on IV fluids for syncope workup including telemetry, Echocardiogram and MRI of brain * Abdominal pain symptoms before event have spontaneously resolved * Consider CT chest/abd/pelvis if they return. * Patient reports that he had went up to his cabin 1 1/2 months ago to mow the grass. He later woke up [place] his [place], patient unsure how long he had been there. * Brain MRI showed: no acute intracranial abnormality. * Echocardiogram showed: Summary 1. Complete two-dimensional, color flow and Doppler transthoracic echocardiogram is performed. 2. Left ventricular chamber dimension is normal. 3. Left ventricular systolic function is normal, estimated at 55-60. 4. The left ventricular diastolic function is normal. 5. E/e' 8 is minimally elevated. 6. Left atrial chamber dimension is mildly enlarged. 7. There is moderate aortic valve sclerosis. 8. There is trace mitral valve regurgitation. 9. There is trace tricuspid valve regurgitation. 10. There is trace pulmonic regurgitation. * Cardiology consulted. 09/23/24: * Pt's BP has remained stable. * Brain MRI Normal * ECHO unremarkable. * Cardiology has evaluated pt and has cleared for discharge. (2) MARIELA (acute kidney injury): Code(s): N17.9 - Acute kidney failure, unspecified Status: Acute Assessment and Plan: * Creatinine improved from 1.60>1.08. 09/23/24: * Cr and BUN 0.97/17 (3) Bradycardia: Code(s): R00.1 - Bradycardia, unspecified Status: Acute Assessment and Plan: * Heart rate 46. * Bradycardia with 2 episodes of syncope. * Telemetry. * Cardiology consult placed. 09/23/24: * Pt remains bradycardic 40s-50s. Asymptomatic. * Telemetry has been continued. * Cardiology consulted and no further recommendations made. * No evidence of block on EKG. 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 09/23/24: * Continue Eliquis (5) Prediabetes: Code(s): R73.03 - Prediabetes Status: Chronic Assessment and Plan: * HgbA1C 5.8%. 09/23/24: * Recommend heart healthy and low carb diet. (6) Dyslipidemia: Code(s): E78.5 - Hyperlipidemia, unspecified Status: Chronic Assessment and Plan: * Atorvastatin 10 mg PO qhs. 09/23/24: * Recommend heart healthy diet Plan Discharge to home DS: Summary Hospital Course Reason for hospitalization: Syncope, Bradycardia, Hypotension Hospital Course: This is a very pleasant 79 year old male pt with PMH of Vitamin D deficiency, PE, Macular degeneration, Factor V Leiden deficiency, Portal Vein Thrombosis, Idiopathic Gout, HTN, HLD and OA who presented to and was subsequently admitted from the ER after arriving there on 09/21/24 with complaints of a syncopal episode. His daughter reportedly found him unconscious at home and it is unknown for how long he was unconscious. Pt stated he had abdominal pain prior to syncopizing, but no other prodromal symptoms of dizziness, lightheadedness, or CP. He was found by EMS to have a BP of 70/40. EKG in ER demonstrated a SB w/1st degree AVB and LAD. Labs were unremarkable. CXR and CT Head were both normal. He was given IVF and admitted. His hospital course has been favorable and pt has remained asymptomatic. He had MRI of the brain which was normal. ECHO found to have a normal LVSF w/EF of 55-60%, and normal Diastolic function. The pt was consulted on by Cardiology who offers opinion of pt wearing a holter monitor and following up with Dr. Benson afterwards. The monitor is to be placed in his office. He is stable for discharge to home at this time with no change in medications. Status at Discharge Cognitive/behavioral status at discharge: At baseline Functional status at discharge: independent ambulation Overall status at discharge: patient is back to baseline Time Spent with Patient Time attestation: Total time spent providing and/or coordinating discharge services: Time spent: Greater than 30 minutes Specific discharge activities: follow up, medications, return to ER precautions Exam Narrative: GENERAL: Well-appearing, well-nourished, and in no acute distress. HEAD: Normocephalic, atraumatic. ENT:? Mucous membranes moist. CHEST: Clear to auscultation.? No respiratory distress. HEART: Regular rate and rhythm. ? Normal peripheral pulses. ABDOMEN: Soft, nontender, nondistended. EXTREMITIES: Normal range of motion. No peripheral edema. SKIN: Warm dry normal color NEURO: Alert and oriented x3. PSYCH: Normal mood and affect DS: Data Data Completed and Pending Completed studies during hospitalization: ITS Impressions Chest X-Ray 09/21/24 13:37 IMPRESSION: 1. No acute pulmonary process identified. Head CT 09/21/24 15:18 Impression: No acute intracranial hemorrhage or suspicious mass effect. Inflammatory sinus disease. Brain MRI 09/22/24 15:00 IMPRESSION: No acute intracranial abnormality. MR findings that may represent acute left maxillary sinusitis in the appropriate clinical context Labs on day of discharge: Labs from last 24 hours 09/23/24 04:30 WBC 7.3 RBC 4.46 L Hgb 13.6 L Hct 41.3 L MCV 92.6 MCH 30.5 MCHC 32.9 RDW 13.0 Plt Count 146 L MPV 9.6 Immature Gran % (Auto) 0.1 Neut % (Auto) 54.8 Lymph % (Auto) 30.3 [place] % (Auto) 9.6 H Eos % (Auto) 4.9 H Baso % (Auto) 0.3 Lymph # (Auto) 2.21 [place] # (Auto) 0.7 H Eos # (Auto) 0.4 H Baso # (Auto) 0.0 Abs Immat Gran (auto) 0.01 Absolute Neuts (auto) 4.0 Absolute Nucleated RBC 0.000 Nucleated RBC % 0.0 % Immature Plt Fraction 2.1 Sodium 139 Potassium 4.4 Chloride 108 H Carbon Dioxide 27 Anion Gap 4 BUN 17 Creatinine 0.97 Estim Creat Clear Calc 54 Estimated GFR > 60 Glucose 91 Calcium 8.9 Magnesium 1.9 Total Bilirubin 0.8 AST 30 ALT 18 Alkaline Phosphatase 69 Total Protein 6.4 Albumin 3.4 L Discharge Plan Discharge Attending physician on discharge: Jordon Salinas Consulting providers: Chon Benson; Светлана Gonzalez Discharging Clinician: Светлана Gonzalez Anticipated Discharge Date/Time: 09/23/24 14:08 Patient Disposition: Home Activity: as tolerated Diet: heart healthy Discharge Instructions: Thank you for allowing us to evaluate and treat you in the hospital. Your MRI of the brain was normal as was your CT Scan. Your ECHO is also normal. Cardiology consulted and Patient Instructions: Apixaban (By mouth) Patient Language: Occitan Stand Alone Forms: General Discharge Information Follow-up/Referrals: Chon Benson MD [Physician] - (Call office for scheduling of placement of Holter/Event monitor and then arrange for follow up as well.) Thien Colbert MD [Primary Care Provider] - Discharge Medications: Continued atorvastatin [Lipitor] 10 mg tablet 10 mg PO QHS Qty: 90 2RF PreserVision AREDS-2 250-90-40-1 mg Capsule 1 tablet PO BID lisinopril 10 mg tablet 10 mg PO DAILY indomethacin 75 mg capsule, extended release 75 mg PO BID PRN (Reason: GOUT) Qty: 30 0RF Rx Instructions: administer with a meal/food; swallow whole; do not open, crush, dissolve , or chew Eliquis 5 mg tablet 5 mg PO BID Qty: 180 1RF fluticasone propionate [Flonase Allergy Relief] 50 mcg/actuation spray,suspension 2 spray intranasal DAILY Qty: 16 0RF Rx Instructions: administer into each nostril Date of admission: 09/22/24 16:10 Primary Care Provider: Thien Colbert Admitting Provider: Jordon Salinas Attending physician on admission: Jordon Salinas Condition: Improved Quality VTE Prophylaxis VTE prophylaxis: pharmacologic ordered Hospitalist MIPS Heart Failure (Exclusion) Patient has history of Heart Transplant or Left Ventricular Assistive Device?: No IF YES, STOP HERE Heart Failure (Qualifier) Patient has current or prior documentation of LVEF less than or equal to 40%, or mod/servere depressed LVSF?: No IF NO, STOP HERE
--- NOTE | 2024-09-23 14:19 | P.CONCA_ITS ---
Assessment and Plan Assessment and plan (1) Syncope and collapse: Code(s): R55 - Syncope and collapse Status: Acute Plan This is a 79-year-old man with a couple of syncopal episodes. The 1 that brought him to the hospital sounds vagal so vasovagal in nature. He did have an episode earlier in the summer that I believe sounds more concerning to me. His echocardiograms have consistently shown no structural cardiac abnormalities. 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 He has been out in the hospital for 48 hours and no arrhythmias have been seen. I believe he can be discharged at this time I am going to recommend a 30 day event monitor at my office and instruct them to reach out to him to initiate this after discharge. I will see him after the event monitor data is available for further evaluation if needed. Chon Benson MD [facility] History of Present Illness History of Present Illness Consult date/time: 09/23/24 14:19 Reason For Visit: syncopal episode Narrative: This is a 79-year-old man who I see at the request of the hospitalist today because of syncopal episode for which was hospitalized yesterday. The patient states that he was in his usual state of health when he was at home and had to have a bowel movement. He was in his bathroom and was having a difficult time passing the stool and was straining shortly a was found awakened on the floor next to his toilet. The patient gave a different story that he became weak and fell off the toilet and does not think he lost consciousness but several family members apparently reported otherwise. He was in any event he was brought to the emergency room where he was evaluated and admitted to the hospital. His electrocardiogram the ER showed sinus bradycardia with left axis and left anterior hemiblock. Comparison to previous ECGs in the chart there are no changes. He has been telemetry since admission which is about 48 hours now and no arrhythmias have been seen. He had an echocardiogram done in the hospital which is essentially unremarkable. Over the last several years he has had 3 favorable echocardiograms performed. He is not known to have any heart disease otherwise he is an active man and does not have any exertional symptoms. 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 I saw this patient for some chest pain several years ago and he had bilateral pulmonary emboli at that time was not anticoagulated. The patient also had a syncopal episode earlier in the summer which was of more concern. 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 He obviously was not in a situation where he is vagus nerve would of been stimulated at that time. No evaluation was performed at that time. Review of Systems 2 Constitutional: Constitutional: Reports no additional constitutional complaints Eyes: Eyes: Reports no additional eye complaints ENT: Reports system reviewed and no additional complaints, except as documented Cardiovascular: Cardiovascular: Reports as per HPI Respiratory: Respiratory: Reports no additional respiratory complaints Gastrointestinal: Gastrointestinal: Reports no additional gastrointestinal complaints Musculoskeletal: Musculoskeletal: Reports no additional musculoskeletal complaints Integumentary/Breasts: Skin/Breast: Reports system reviewed and no additional complaints, except as docu Neurologic: Reports system reviewed and no additional complaints, except as documented Psychiatric: Psychiatric: Reports no additional psychiatric complaints Endocrine: Endocrine: Reports no additional endocrine complaints Hematologic/Lymphatic: Hematologic/Lymphatic: Reports as per HPI Allergic/Immunologic: Allergic/Immunologic: Reports no additional allergic/immunologic complaints [facility] Past Medical History Medical History Vitamin D deficiency Pulmonary embolism (~05/2021) Macular degeneration Kidney stones Factor V deficiency Prediabetes Hemoglobin A1c was 5.8% in May 2021. Portal vein thrombosis (~2010) Idiopathic gout Essential (primary) hypertension Unspecified osteoarthritis, unspecified site Dyslipidemia Surgical History Surgical History History of colonoscopy with polypectomy (04/2020) Transverse colon polyp-tubular adenoma History of right inguinal hernia repair (1965) History of appendectomy (2008) History of arthroscopy of both knees (~1974) History of bilateral carpal tunnel release (~2012) [place] teeth extracted (01/2020) History of cholecystectomy (2008) Family History Family History Father Carcinoma of colon, Onset Age: 76 Family history of hypercholesterolemia Heart attack Mother Cerebrovascular accident Family history of hypercholesterolemia Family history of thyroid disease Sibling Malignant neoplasm of prostate Social History Social History Social History: Surrogate decision maker: Elayne Vogt, daughter. Code status: Full code. Caffeine- daily Smoking status: Never smoker Second hand tobacco smoke exposure: No Alcohol intake: never Substance use: never Substance use type: does not use Do You Feel Safe in your Home?: Yes Lack of Transportation: No Lack of Food: Never True Current Housing: I Have Housing Concerned About Future Housing: No Difficulty Paying Gas/Electric Bills: No Difficulty Paying for Meds: No Currently Unemployed: No Education: Bachelor's Degree Difficulty w/ Childcare or Family Care: No Living arrangements: with family Additional living arrangements comments: as of August 2020. Daughter, son-in-law, grandchildren are now living with him. Additional occupation/education comments: Retired from working for the [employer] Gender identity (if verbalized by the patient): Male Spiritual care concerns: No Agree to blood products: Yes Meds Home Medications and Allergies Home Medications ?Medication ?Instructions ?Recorded ?Confirmed ?Type vit C 250 mg-vit E 90 mg-zinc 40 1 tablet PO BID 05/31/21 09/21/24 History mg-copper 1 [id number] capsule (PreserVision AREDS-2) indomethacin 75 mg 75 mg PO BID PRN GOUT #30 caps 01/20/23 09/21/24 Rx capsule,extended release apixaban 5 mg tablet (Eliquis) 5 mg PO BID #180 tabs 06/28/24 09/21/24 Rx atorvastatin 10 mg tablet (Lipitor) 10 mg PO QHS #90 tabs 07/21/24 09/21/24 Rx fluticasone propionate 50 2 spray intranasal DAILY #16 grams 08/11/24 09/21/24 Rx mcg/actuation nasal spray,suspension (Flonase Allergy Relief) lisinopril 10 mg tablet 10 mg PO DAILY 09/21/24 09/21/24 History Allergies Allergy/AdvReac Type Severity Reaction Status Date / Time Shrimp Allergy Severe DIFFICULTY Uncoded 09/21/24 12:52 BREATHING Vital Signs Vital Signs - 24 hr 09/22/24 16:00 09/22/24 20:00 09/22/24 20:00 Temperature Pulse Rate 45 L 55 L Respiratory Rate Blood Pressure Pulse Oximetry Oxygen Delivery Room Air 09/22/24 22:00 09/23/24 00:00 09/23/24 00:36 Temperature 36.6 C Pulse Rate 50 L 45 L Respiratory Rate 16 Blood Pressure 145/45 H Pulse Oximetry 96 95 Oxygen Delivery Room Air 09/23/24 04:00 09/23/24 06:00 09/23/24 09:10 Temperature 36.6 C Pulse Rate 47 L 47 L Respiratory Rate 16 Blood Pressure 145/49 H Pulse Oximetry 96 Oxygen Delivery Room Air 09/23/24 09:10 09/23/24 12:00 Temperature Pulse Rate 46 L 51 L Respiratory Rate Blood Pressure Pulse Oximetry Oxygen Delivery Exam 2 Const: General: comfortable and no acute distress Other: Pleasant elderly white male appearing his stated age in no distress of any kind HENMT: Mouth: Yes moist mucous membranes Eyes: Sclera: sclerae normal Neck: Neck: supple and no JVD Resp: Effort & Inspection: normal respiratory effort Auscultation: clear to auscultation bilaterally Cardio: Rate: regular rate Rhythm: regular rhythm Other: No murmur soft 4th heart sound is audible GI: GI Palp: Yes Soft to palpation Auscultation: normal bowel sounds Skin: General skin exam: normal color Neuro: Other: Alert and oriented x3 Extrem: General: normal to inspection Results Labs and Meds 09/23/24 04:30 09/23/24 04:30 Lab results: Cardiac Enzymes 09/23/24 Range/Units 04:30 AST 30 (17-59) U/L CBC 09/23/24 Range/Units 04:30 WBC 7.3 (4.5-10.0) K/mm3 RBC 4.46 L (4.6-6.20) M/mm3 Hgb 13.6 L (14.0-18.0) g/dL Hct 41.3 L (42.0-52.0) % Plt Count 146 L (150-375) k/mm3 Lymph # (Auto) 2.21 (0.9-3.2) K/mm3 [place] # (Auto) 0.7 H (0.1-0.6) K/mm3 Eos # (Auto) 0.4 H (0-0.3) K/mm3 Baso # (Auto) 0.0 (0.0-0.1) K/mm3 Comprehensive Metabolic Panel 09/23/24 Range/Units 04:30 Sodium 139 (137-145) mmol/L Potassium 4.4 (3.4-5.0) mmol/L Chloride 108 H (98-107) mmol/L Carbon Dioxide 27 (22-30) mmol/L BUN 17 (9-20) mg/dL Creatinine 0.97 (0.7-1.3) mg/dL Glucose 91 (65-110) mg/dL Calcium 8.9 (8.4-10.2) mg/dL AST 30 (17-59) U/L ALT 18 (6-50) U/L Alkaline Phosphatase 69 (38-126) U/L Total Protein 6.4 (6.3-8.2) g/dL Albumin 3.4 L (3.5-5.1) g/dL Intake and Output 09/22/24 09/23/24 09/23/24 23:59 07:59 15:59 Intake Total 1931.7 200 980 Balance 1931.7 200 980 Intake: IV 691.7 Lactated Ringers 1,000 ml @ 125 691.7 mls/hr IV CONT .Q8H SHAYNA Rx#: [id number] Oral 1240 200 980 Other: # Unmeasured Voids 4 2 1
== END 2024-09-23 16:00 | disposition home or self-care (01) | DRG 312 ==
LOC: ANHED 16:40 → ANH3MEDSUR 17:37 → ANH2MED 18:11
PROVIDERS: Nurse Practitioner; Admitting Provider General Practice; Emergency Provider Emergency Medicine; PCP Family Medicine; Visit Provider General Practice
DX: R55 Syncope and collapse (principal); N17.9 Acute kidney failure, unspecified; D68.51 Activated protein C resistance; R00.1 Bradycardia, unspecified; I10 Essential (primary) hypertension; E55.9 Vitamin D deficiency, unspecified; E78.5 Hyperlipidemia, unspecified; M19.90 Unspecified osteoarthritis, unspecified site; R73.03 Prediabetes; M10.00 Idiopathic gout, unspecified site; H35.30 Unspecified macular degeneration; Z79.01 Long term (current) use of anticoagulants; Z86.711 Personal history of pulmonary embolism; Z87.442 Personal history of urinary calculi; Z86.0101 Personal history of adenomatous and serrated colon polyps
CPT/HCPCS: 36415; 70450; 70553; 71046; 80053; 81001; 82948; 83036; 83735; 84443; 85025; 85055; 93005; 93306; 96361; 96374; 99285; A9270; A9577; G0378; J7120